=== PATIENT | female | born 1960 | race Caucasian/White ===

== ENCOUNTER → 2016-07-28 | Outpatient (CLI) | payer MEDICAID | LOC: RAD 15:01 | PROVIDERS: ATTEND Family Medicine | DX: R91.1 Solitary pulmonary nodule (principal) | CPT/HCPCS: 71250 ==

== ENCOUNTER → 2016-08-13 | Day surgery (SDC) | payer MEDICAID ==
[2016-08-13 10:23] VITALS: BP 172/84
[2016-08-13 10:31] LABS: PROTHROMBIN TIME 12.4 SEC (11.4-15.4)
[2016-08-13 10:32] LABS: PARTIAL THROMBOPLASTIN TIME 30.5 SEC (23.5-35.8)
== END ==
LOC: RAD 09:52
PROVIDERS: ATTEND Specialist
DX: G35 Multiple sclerosis (principal); Z53.9 Procedure and treatment not carried out, unspecified reason
CPT/HCPCS: 36415; 82962; 85610; 85730

== ENCOUNTER 2016-08-18 08:20 | Day surgery (SDC) | payer MEDICAID ==
[2016-08-18 09:15] LABS: PROTHROMBIN TIME 12.9 SEC (11.4-15.4)
[2016-08-18 09:16] LABS: PARTIAL THROMBOPLASTIN TIME 31.7 SEC (23.5-35.8)
[2016-08-18 12:01] LABS: APPEARANCE ALL TUBES CLEAR
[2016-08-18 12:02] LABS: RBC DILUENT USED NONE USED; RBC SIDE 1 212; RBC SIDE 2 194
[2016-08-18 12:04] LABS: RBC DILUTION FACTOR 1
[2016-08-18 12:05] LABS: TOTAL RBC SQUARES COUNTED 225
[2016-08-18 12:25] LABS: GLUCOSE,CSF 79 mg/dL (40-70)
[2016-08-18 12:27] LABS: WHITE BLOOD CELL,CSF 4 /uL (0-5)
[2016-08-18 13:29] VITALS: BP 152/69
[2016-08-19 13:38] LABS: ALBUMIN CSF 30 mg/dL (11-48); ALBUMIN SERUM 3.9 g/dL (3.5-5.5); CSF IGG INDEX 0.6 (0.0-0.7); IGG SYNTHESIS RATE CSF 1.7 mg/day (-9.9 TO +3.3); IGG/ALBUMIN RATIO CSF 0.15 (0.00-0.25); IMMUNOGLOBULIN G CSF 4.5 mg/dL (0.0-8.6); IMMUNOGLOBULIN G SERUM 1004 mg/dL (700-1600)
[2016-08-19 13:48] LABS: CSF/SERUM ALBUMIN INDEX 8 (0-8)
== END 2016-08-18 13:00 | disposition home or self-care (01) ==
LOC: RAD 08:20
PROVIDERS: ATTEND Specialist
PROC: 009U3ZX Drainage of Spinal Canal, Percutaneous Approach, Diagnostic (ICD-10-PCS; principal; 2016-08-18)
DX: G35 Multiple sclerosis (principal)
CPT/HCPCS: 36415; 62270; 77003; 82784; 82945; 82962; 83916; 84157; 85610; 85730; 87070; 87205; 89050

== ENCOUNTER → 2016-09-04 | Outpatient (CLI) | payer MEDICAID | LOC: RAD 11:01 | PROVIDERS: ATTEND Internal Medicine Nephrology | DX: R09.89 Other specified symptoms and signs involving the circulatory and respiratory systems (principal); I12.9 Hypertensive chronic kidney disease with stage 1 through stage 4 chronic kidney disease, or unspecified chronic kidney disease; N18.3 Chronic kidney disease, stage 3 (moderate); E11.9 Type 2 diabetes mellitus without complications | CPT/HCPCS: 76770; 93880 ==

== ENCOUNTER → 2016-09-11 | Outpatient (CLI) | payer MEDICAID ==
[2016-09-11 11:49] LABS: HEMATOCRIT 35.3 % (36.0-47.0); HEMOGLOBIN 11.4 g/dL (12.0-15.5); HGB HCT DIFFERENCE -1.1; MEAN CORPUSCULAR HEMOGLOBIN 28.7 pg (27.0-33.4); MEAN CORPUSCULAR HGB CONC 32.4 g/dL (32.0-36.0); MEAN CORPUSCULAR VOLUME 89 fl (80-97); RED BLOOD COUNT 3.99 10^6/uL (3.72-5.28); RED CELL DISTRIBUTION WIDTH 15.2 % (11.5-14.0); WHITE BLOOD COUNT 10.8 10^3/uL (4.0-10.5)
[2016-09-11 11:50] LABS: APPEARANCE,URINE SLIGHTLY-CLOUDY; BILIRUBIN,URINE NEGATIVE (NEGATIVE); GLUCOSE, URINE 50 mg/dL (NEGATIVE); KETONES,URINE NEGATIVE (NEGATIVE); LEUKOCYTE ESTERASE,URINE NEGATIVE (NEGATIVE); NITRITE,URINE NEGATIVE (NEGATIVE); PROTEIN,URINE 30 mg/dL (NEGATIVE); URINE SPECIFIC GRAVITY 1.016; UROBILINOGEN,URINE NEGATIVE mg/dL (<2.0)
[2016-09-11 12:15] LABS: ANION GAP 13 (5-19); BLOOD UREA NITROGEN 27 mg/dL (7-20); CALCIUM 9.6 mg/dL (8.4-10.2); CARBON DIOXIDE 26 mmol/L (22-30); CHLORIDE 105 mmol/L (98-107); CREATININE RESULT 1.39 mg/dL (0.52-1.25); GLUCOSE 186 mg/dL (75-110); POTASSIUM 4.9 mmol/L (3.6-5.0); SODIUM 143.5 mmol/L (137-145)
== END ==
LOC: OD 11:06
PROVIDERS: ATTEND Internal Medicine Nephrology
DX: I12.9 Hypertensive chronic kidney disease with stage 1 through stage 4 chronic kidney disease, or unspecified chronic kidney disease (principal); N18.3 Chronic kidney disease, stage 3 (moderate); E11.9 Type 2 diabetes mellitus without complications; E87.5 Hyperkalemia
CPT/HCPCS: 36415; 80048; 81001; 85027

== ENCOUNTER → 2016-09-18 | Outpatient (CLI) | payer MEDICAID ==
--- NOTE | 2016-09-21 14:57 | XCELERA REPORT ---
[address] [address] Lower Extremity Venous Evaluation Name: FLETCHER LONG Age: 56 yrs Gender: Female : 1960 Patient Status: Outpatient Patient Location: Study Date: 09/18/2016 03:49 PM Procedure: Color flow and duplex imaging of the veins of the left lower extremity as well as the right Common Femoral vein. Reason For Study: LLE SWELLING M79.89 Ordering Physician: ZAHIRA MCCLAIN Performed By: Henrietta Franklin Right Sided Venous Evaluation The right common femoral vein is fully compressible. Spontaneous and phasic flow is present in the right common femoral vein. Left Sided Venous Evaluation Normal vessel filling wall to wall, compression and augmentation as well as Colour flow down to the infrageniculate veins. Interpretation Summary No duplex evidence of DVT or obstruction in the left lower extremity nor in the right Common Femoral vein. : ZAHIRA MCCLAIN > Antonio Estevez
== END ==
LOC: SP 15:35
PROVIDERS: ATTEND Family Medicine
DX: M79.89 Other specified soft tissue disorders (principal)
CPT/HCPCS: 93971

== ENCOUNTER → 2016-11-30 | Outpatient (CLI) | payer MEDICAID ==
[2016-11-30 10:35] LABS: HEMATOCRIT 35.8 % (36.0-47.0); HEMOGLOBIN 11.6 g/dL (12.0-15.5); MEAN CORPUSCULAR HGB CONC 32.4 g/dL (32.0-36.0); MEAN CORPUSCULAR VOLUME 87 fl (80-97); RED BLOOD COUNT 4.14 10^6/uL (3.72-5.28); RED CELL DISTRIBUTION WIDTH 15.1 % (11.5-14.0); WHITE BLOOD COUNT 9.6 10^3/uL (4.0-10.5)
[2016-11-30 10:49] LABS: APPEARANCE,URINE SLIGHTLY-CLOUDY; BILIRUBIN,URINE NEGATIVE (NEGATIVE); GLUCOSE, URINE NEGATIVE (NEGATIVE); KETONES,URINE NEGATIVE (NEGATIVE); LEUKOCYTE ESTERASE,URINE NEGATIVE (NEGATIVE); NITRITE,URINE NEGATIVE (NEGATIVE); PROTEIN,URINE 30 mg/dL (NEGATIVE); URINE SPECIFIC GRAVITY 1.013; UROBILINOGEN,URINE NEGATIVE mg/dL (<2.0)
[2016-11-30 11:03] LABS: ANION GAP 16 (5-19); BLOOD UREA NITROGEN 22 mg/dL (7-20); CALCIUM 9.4 mg/dL (8.4-10.2); CARBON DIOXIDE 25 mmol/L (22-30); CHLORIDE 107 mmol/L (98-107); GLUCOSE 122 mg/dL (75-110); POTASSIUM 4.9 mmol/L (3.6-5.0); SODIUM 147.5 mmol/L (137-145)
[2016-11-30 11:12] LABS: URINE CREATININE 124.3 mg/dL (15-278); URINE PROTEIN 30.8 mg/dL (<12)
== END ==
LOC: OD 09:37
PROVIDERS: ATTEND Internal Medicine Nephrology
DX: N18.3 Chronic kidney disease, stage 3 (moderate) (principal); E87.5 Hyperkalemia; E11.9 Type 2 diabetes mellitus without complications; R80.9 Proteinuria, unspecified
CPT/HCPCS: 36415; 80048; 81001; 82570; 84156; 85027

== ENCOUNTER → 2016-12-03 | Outpatient (CLI) | payer MEDICAID ==
[2016-12-03 11:24] LABS: ANION GAP 16 (5-19); BLOOD UREA NITROGEN 19 mg/dL (7-20); CALCIUM 9.3 mg/dL (8.4-10.2); CARBON DIOXIDE 23 mmol/L (22-30); CHLORIDE 103 mmol/L (98-107); CREATININE RESULT 1.19 mg/dL (0.52-1.25); GLUCOSE 171 mg/dL (75-110); POTASSIUM 4.7 mmol/L (3.6-5.0); SODIUM 141.8 mmol/L (137-145)
== END ==
LOC: OD 09:54
PROVIDERS: ATTEND Internal Medicine Nephrology
DX: E87.0 Hyperosmolality and hypernatremia (principal)
CPT/HCPCS: 36415; 80048

== ENCOUNTER 2017-02-08 16:42 | Inpatient (IN) | payer MEDICAID ==
--- NOTE | 2017-02-08 17:25 | ER Document Report ---
ED Medical Screen (RME) - General Chief Complaint: S/S of Possible Stroke Stated Complaint: CHEST PAIN Time Seen by Provider: 02/08/17 17:06 Information source: Patient Notes: Patient is a 57 year old female who presents to the ED with complaints of right facial weakness, drooling and weakness in the right leg x3 days that has remained constant. Patient denies chest pain, headache or swallowing difficulty. Patient reports some dizziness. Patient stopped taking her aspirin today and stopped Plavix at the beginning of the month for an upcoming eye surgery. TRAVEL OUTSIDE OF THE [place] IN LAST 30 DAYS: No - HPI Associated Symptoms: Other - see above - Related Data Allergies/Adverse Reactions: niacin [Niacin] Allergy (Verified 02/08/17 16:45) simvastatin [Simvastatin] Allergy (Verified 02/08/17 16:45) benedryl Adverse Reaction (Uncoded 02/08/17 16:45) Past Medical History - General Information source: Patient - Social History Chew tobacco use (# tins/day): No Frequency of alcohol use: None Drug Abuse: None - Past Medical History Cardiac Medical History: Reports: Hx Hypercholesterolemia, Hx Hypertension Denies: Hx Coronary Artery Disease, Hx Heart Attack Pulmonary Medical History: Reports: Hx Bronchitis Denies: Hx Asthma, Hx COPD, Hx Pneumonia Neurological Medical History: Reports: Hx Seizures - 3 YEARS AGO AFTER BENADRYL USE. Denies: Hx Cerebrovascular Accident Endocrine Medical History: Reports: Hx Diabetes Mellitus Type 2 - no medications Renal/ Medical History: Denies: Hx Peritoneal Dialysis Musculoskeltal Medical History: Reports Hx Arthritis Past Surgical History: Reports: Hx Tubal Ligation - Immunizations Hx Diphtheria, Pertussis, Tetanus Vaccination: No - UNSURE Review of Systems - Review of Systems Constitutional: See HPI, Weakness - RLE EENT: No symptoms reported Cardiovascular: No symptoms reported Respiratory: No symptoms reported Gastrointestinal: No symptoms reported Genitourinary: No symptoms reported Female Genitourinary: No symptoms reported Musculoskeletal: No symptoms reported Skin: No symptoms reported Hematologic/Lymphatic: No symptoms reported Neurological/Psychological: See HPI, Weakness - in right lower extremity, Other - right sided facial weakness, drooling Physical Exam - Vital signs Vitals: Temp Pulse Resp BP Pulse Ox 97.7 F 80 20 192/89 H 100 02/08/17 16:45 02/08/17 16:45 02/08/17 16:45 02/08/17 16:45 02/08/17 16:45 - General In distress: None - HEENT Head: Other - drooping of right side of face, normal forehead movement - Extremities General lower extremity: Other - mild right lower extremity weakness, no pronator drift - Neurological Motor strength normal: No: RLE - mild right lower extremity weakness, no pronator drift Course - Vital Signs Vital signs: Temp Pulse Resp BP Pulse Ox 97.7 F 80 20 192/89 H 100 02/08/17 16:45 02/08/17 16:45 02/08/17 16:45 02/08/17 16:45 02/08/17 16:45 Scribe Documentation - Scribe Written by Luis:: luis Blair, 02/08/2017, 1720 acting as scribe for :: Pankaj
--- NOTE | 2017-02-08 17:43 | RADIOLOGY REPORT (SQ) ---
EXAM DESCRIPTION: CHEST SINGLE VIEW COMPLETED DATE/TIME: 02/08/2017 5:35 pm REASON FOR STUDY: Right Facial droop and leg weakness. COMPARISON: None. EXAM PARAMETERS: NUMBER OF VIEWS: One view. TECHNIQUE: Single frontal radiographic view of the chest acquired. RADIATION DOSE: NA LIMITATIONS: None. FINDINGS: LUNGS AND PLEURA: No opacities, masses or pneumothorax. No pleural effusion. MEDIASTINUM AND HILAR STRUCTURES: No masses. Contour normal. HEART AND VASCULAR STRUCTURES: Heart normal in size. Normal vasculature. BONES: No acute findings. HARDWARE: None in the chest. OTHER: No other significant finding. IMPRESSION: NO ACUTE RADIOGRAPHIC FINDING IN THE CHEST. TECHNICAL DOCUMENTATION: JOB ID: [id number]
--- NOTE | 2017-02-08 17:43 | RADIOLOGY REPORT (SQ) ---
EXAM DESCRIPTION: CT HEAD WITHOUT COMPLETED DATE/TIME: 02/08/2017 5:31 pm REASON FOR STUDY: Right Facial droop and leg weakness. COMPARISON: 10/07/2014 TECHNIQUE: Axial images acquired through the brain without intravenous contrast. Images reviewed wi th bone, brain and subdural windows. Images stored on PACS. All CT scanners at this facility use dose modulation, iterative reconstruction, and/or weight based d osing when appropriate to reduce radiation dose to as low as reasonably achievable (ALARA). [facility]: Dose Right [facility]: CareDose [facility]: Dose Right [facility]: Teradose 4D [facility]: CreditEase RADIATION DOSE: mGy. LIMITATIONS: None. FINDINGS: VENTRICLES: Normal size and contour. CEREBRUM: Area of encephalomalacia within the right frontal lobe not present on prior study compatibl e with chronic GIANFRANCO territory infarction. Subtle area of low attenuation involving the left frontal l obe seen on series 2, images 17-20 knee concerning for acute/ subacute MCA territory infarction. No hemorrhage or mass lesion identified. CEREBELLUM: No masses. No hemorrhage. No alteration of density. No evidence for acute infarction. EXTRAAXIAL SPACES: No fluid collections. No masses. ORBITS AND GLOBE: No intra- or extraconal masses. Normal contour of globe without masses. CALVARIUM: No fracture. PARANASAL SINUSES: No fluid or mucosal thickening. SOFT TISSUES: No mass or hematoma. OTHER: No other significant finding. IMPRESSION: CT FINDINGS CONCERNING FOR ACUTE/ SUBACUTE LEFT MCA TERRITORY INFARCTION DESCRIBED AB OVE. MRI IS AVAILABLE FOR FURTHER EVALUATION CLINICALLY INDICATED. CHRONIC RIGHT GIANFRANCO TERRITORY INFARCTION. Pertinent findings on the imaging study reported as a CRITICAL RESULT to CHACORTA TORRES at17:35 on 02/08. Category of Critical Result: ACUTE STROKE. TECHNICAL DOCUMENTATION: JOB ID: [id number] Quality ID # [id number]: Final reports with documentation of one or more dose reduction techniques (e.g., Au tomated exposure control, adjustment of the mA and/or kV according to patient size, use of iterative reconstruction technique) 2010 [employer]- All Rights Reserved
--- NOTE | 2017-02-08 17:50 | ER Document Report ---
ED Neuro Symptoms/Deficit - General Information source: Patient Notes: Patient is a 57-year-old female who presents to the emergency department today with complaints of right-sided facial weakness. Patient states she has had this weakness for 4 days now. Patient states she has no right-sided arm or leg weakness. Patient states that she has been off of her blood thinning medication secondary to a scheduled eye surgery on 02/08/2017. Patient states she has been told by neurology that she has had TIAs in the past. 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 TRAVEL OUTSIDE OF THE [place] IN LAST 30 DAYS: No - HPI Patient complains to provider of: Other - see narrative Onset: Other - see above Duration: More than 3 hrs Baseline Cognitive: Alert, oriented X 3 Baseline Gait: Walks w/o assistance New weakness: R facial <SAMIA KRISHNAMURTHY - Last Filed: 02/08/17 23:45> <FLETCHER WHATLEY - Last Filed: 02/09/17 01:15> - General Chief Complaint: S/S of Possible Stroke Stated Complaint: CHEST PAIN Time Seen by Provider: 02/08/17 17:06 - Related Data Allergies/Adverse Reactions: niacin [Niacin] Allergy (Verified 02/08/17 16:45) simvastatin [Simvastatin] Allergy (Verified 02/08/17 16:45) benedryl Adverse Reaction (Uncoded 02/08/17 16:45) Home Medications: Current Home Medications Amlodipine Besylate [Norvasc 5 mg Tablet] 5 mg PO QAM 02/08/17 [History] Aspirin [Adult Low Dose Aspirin EC] 81 mg PO QAM 02/08/17 [History] Atorvastatin Calcium [Lipitor 80 mg Tablet] 80 mg PO QAM 02/08/17 [History] Bupropion HCl [Wellbutrin Xl 300mg 24hr Tablet] 300 mg PO QAM 02/08/17 [History] Carvedilol [Coreg 12.5 mg Tablet] 12.5 mg PO Q12 02/08/17 [History] Clopidogrel Bisulfate [Plavix 75 mg Tablet] 75 mg PO QAM 02/08/17 [History] Gabapentin [Neurontin 300 mg Capsule] 600 mg PO Q12 02/08/17 [History] Glimepiride [Amaryl 4 mg Tablet] 4 mg PO Q12 02/08/17 [History] Levothyroxine Sodium [Synthroid] 25 mcg PO QAM 02/08/17 [History] Metformin HCl [Glucophage XR 500 mg Tablet] 1,000 mg PO BID 02/08/17 [History] Mirtazapine [Remeron 15 mg Tablet] 15 mg PO QPM 02/08/17 [History] Vitamin B Complex 1 cap PO QPM 02/08/17 [History] Vitamin E 1,000 unit PO QPM 02/08/17 [History] Past Medical History - General Information source: Patient - Social History Smoking Status: Former Smoker Cigarette use (# per day): No Chew tobacco use (# tins/day): No Frequency of alcohol use: None Drug Abuse: None Lives with: Family Family History: Reviewed & Not Pertinent, Other Patient has suicidal ideation: No Patient has homicidal ideation: No - Past Medical History Cardiac Medical History: Reports: Hx Hypercholesterolemia, Hx Hypertension Pulmonary Medical History: Reports: Hx Bronchitis Neurological Medical History: Reports: Hx Cerebrovascular Accident - Hx of TIAs , Hx Seizures - 3 YEARS AGO AFTER BENADRYL USE Endocrine Medical History: Reports: Hx Diabetes Mellitus Type 2 - no medications Musculoskeltal Medical History: Reports Hx Arthritis Past Surgical History: Reports: Hx Tubal Ligation - Immunizations Hx Diphtheria, Pertussis, Tetanus Vaccination: No - UNSURE Hx Pneumococcal Vaccination: 12/10/12 <SAMIA KRISHNAMURTHY - Last Filed: 02/08/17 23:45> Review of Systems - Review of Systems Constitutional: No symptoms reported EENT: No symptoms reported Cardiovascular: No symptoms reported Respiratory: No symptoms reported Gastrointestinal: No symptoms reported Genitourinary: No symptoms reported Female Genitourinary: No symptoms reported Musculoskeletal: No symptoms reported Skin: No symptoms reported Hematologic/Lymphatic: No symptoms reported Neurological/Psychological: See HPI, Other - right sided facial weakness. denies: Headaches -: Yes All other systems reviewed and negative <SAMIA KRISHNAMURTHY - Last Filed: 02/08/17 23:45> Physical Exam - Vital signs Vitals: Temp Pulse Resp BP Pulse Ox 97.7 F 80 20 192/89 H 100 02/08/17 16:45 02/08/17 16:45 02/08/17 16:45 02/08/17 16:45 02/08/17 16:45 <SAMIA KRISHNAMURTHY - Last Filed: 02/08/17 23:45> - Vital signs Vitals: Temp Pulse Resp BP Pulse Ox 97.7 F 80 20 192/89 H 100 02/08/17 16:45 02/08/17 16:45 02/08/17 16:45 02/08/17 16:45 02/08/17 16:45 Interpretation: Normal - General General appearance: Appears well, Alert - HEENT Head: Normocephalic, Atraumatic Eyes: Normal Pupils: PERRL - Respiratory Respiratory status: No respiratory distress Chest status: Nontender Breath sounds: Normal Chest palpation: Normal - Cardiovascular Rhythm: Regular Heart sounds: Normal auscultation Murmur: No - Abdominal Inspection: Normal Distension: No distension Bowel sounds: Normal Tenderness: Nontender Organomegaly: No organomegaly - Back Back: Normal, Nontender - Extremities General upper extremity: Normal inspection, Nontender, Normal color, Normal ROM , Normal temperature General lower extremity: Normal inspection, Nontender, Normal color, Normal ROM , Normal temperature, Normal weight bearing. No: Krissy's sign - Neurological Neuro grossly intact: Yes Cognition: Normal Orientation: AAOx4 [place] Coma Scale Eye Opening: Spontaneous Ayanna Coma Scale Verbal: Oriented Ayanna Coma Scale Motor: Obeys Commands Ayanna Coma Scale Total: 15 Speech: Normal Cranial nerves: Other - Decreased smile on right Motor strength normal: LUE, LLE. No: RUE - 4 out of 5 strength, weakness, no drift, RLE - 4 out of 5 strength, weakness, no drift Sensory: Normal - Psychological Associated symptoms: Normal affect, Normal mood - Skin Skin Temperature: Warm Skin Moisture: Dry Skin Color: Normal <FLETCHER WHATLEY - Last Filed: 02/09/17 01:15> Course - Vital Signs Vital signs: Temp Pulse Resp BP Pulse Ox 97.7 F 80 20 192/89 H 100 02/08/17 16:45 02/08/17 16:45 02/08/17 16:45 02/08/17 16:45 02/08/17 16:45 - Laboratory Result Diagrams: 02/08/17 18:00 02/08/17 18:00 - Consults Dr. Branham Time consulted: 17:45 Consulted provider: will see as inpatient <SAMIA KRISHNAMURTHY - Last Filed: 02/08/17 23:45> - Re-evaluation Re-evalutation: Patient is a 57-year-old female who comes in complaining of right-sided weakness. Patient has acute CVA on CT. Patient discussed with the hospitalist service. Patient will be referred for admission. Otherwise stable. Patient agrees with this plan. - Vital Signs Vital signs: Temp Pulse Resp BP Pulse Ox 97.7 F 80 20 192/89 H 100 02/08/17 16:45 02/08/17 16:45 02/08/17 16:45 02/08/17 16:45 02/08/17 16:45 - Laboratory Result Diagrams: 02/08/17 18:00 02/08/17 18:00 <FLETCHER WHATLEY - Last Filed: 02/09/17 01:15> ED [employer]/Exc Criteria - The patient is: -: Included and is eligible to receive Alteplase. *Initiate bed placement at higher level of care* Reviewd risks & benefits of thrombolytic therapy: I have reviewed the risks and benefits of thrombolytic therapy with the patient and/or his/her family. -: Excluded and not eligible to receive Alteplase for the above exclusions. -: Excluded and not eligible to receive Alteplase for other reasons (specify in comments): --: Yes - 3-day-old symptoms <FLETCHER WHATLEY - Last Filed: 02/09/17 01:15> ED NIH Stroke Scale Discharge <SAMIA KRISHNAMURTHY - Last Filed: 02/08/17 23:45> - Discharge Admitting Provider: Hospitalist [facility] Admitted: Telemetry Scribe Attestation: 02/09/17 01:15 I personally performed the services described in the documentation, reviewed and edited the documentation which was dictated to the scribe in my presence, and it accurately records my words and actions. <FLETCHER WHATLEY - Last Filed: 02/09/17 01:15> - Discharge Clinical Impression: CVA (cerebral vascular accident) Qualifiers: CVA mechanism: unspecified Qualified Code(s): I63.9 - Cerebral infarction, unspecified Condition: Stable Disposition: ADMITTED INPATIENT Scribe Documentation - Scribe Written by Bryanibe:: Racheal Jimenez, 02/09/2017, 0000 acting as scribe for :: Tera <SAMIA KRISHNAMURTHY - Last Filed: 02/08/17 23:45>
[2017-02-08] MEDS ORDERED: INSULIN LISPRO 100 UNIT/ML 3 ML VIAL SUBCUT PRN (18:05)
[2017-02-08] MEDS ORDERED: LABETALOL HCL INJ 20 MG/4 ML DISP.SYRIN IV PRN (18:05)
[2017-02-08] MEDS ORDERED: DEXTROSE 50%-WATER 25 GM/50 ML DISP.SYRIN IV PRN ×2 (18:05)
[2017-02-08] MEDS ORDERED: ACETAMINOPHEN 325 MG TABLET PO PRN (18:05)
[2017-02-08] MEDS ORDERED: GLUCAGON,HUMAN RECOMB 1 MG INJ IM PRN (18:05)
[2017-02-08] MEDS ORDERED: ONDANSETRON HCL INJ/PF 4 MG/2 ML SDV IV PRN (18:05)
[2017-02-08] MEDS ORDERED: DEXTROSE 40% GEL 15 GM TUBE PO PRN ×2 (18:05)
[2017-02-08] MEDS ORDERED: CLOPIDOGREL BISULFATE 75 MG TABLET PO SCH (18:15)
[2017-02-08] MEDS ORDERED: AMLODIPINE BESYLATE 5 MG TABLET PO SCH (18:15)
[2017-02-08 18:23] LABS: ABSOLUTE BASOPHILS # (AUTO) 0.2 10^3/uL (0.0-0.2); ABSOLUTE EOSINOPHILS # (AUTO) 0.7 10^3/uL (0.0-0.6); ABSOLUTE LYMPHOCYTES (AUTO) 2.7 10^3/uL (0.5-4.7); ABSOLUTE MONOCYTES (AUTO) 0.9 10^3/uL (0.1-1.4); ABSOLUTE NEUT (AUTO) 6.7 10^3/uL (1.7-8.2); BASOPHILS % (AUTO) 1.9 % (0-2); EOSINOPHILS % (AUTO) 6.1 % (0-6); HEMATOCRIT 36.2 % (36.0-47.0); HEMOGLOBIN 11.7 g/dL (12.0-15.5); HGB HCT DIFFERENCE -1.1; LYMPHOCYTES % (AUTO) 24.3 % (13-45); MEAN CORPUSCULAR HEMOGLOBIN 27.6 pg (27.0-33.4); MEAN CORPUSCULAR HGB CONC 32.3 g/dL (32.0-36.0); MEAN CORPUSCULAR VOLUME 85 fl (80-97); MONOCYTES % (AUTO) 7.6 % (3-13); PROTHROMBIN TIME 13.1 SEC (11.4-15.4); RED BLOOD COUNT 4.24 10^6/uL (3.72-5.28); RED CELL DISTRIBUTION WIDTH 15.6 % (11.5-14.0); SEGMENTED NEUTROPHILS % (AUTO) 60.1 % (42-78); WHITE BLOOD COUNT 11.2 10^3/uL (4.0-10.5)
[2017-02-08 18:24] LABS: PARTIAL THROMBOPLASTIN TIME 35.4 SEC (23.5-35.8)
[2017-02-08] MEDS ORDERED: LORAZEPAM INJ 2 MG/1 ML VIAL IV ONE (18:30)
[2017-02-08 18:32] LABS: ALANINE AMINOTRANSFERASE 34 U/L (9-52); ALBUMIN 4.5 g/dL (3.5-5.0); ALKALINE PHOSPHATASE 111 U/L (38-126); ANION GAP 13 (5-19); ASPARTATE AMINO TRANSFERASE 20 U/L (14-36); BILIRUBIN,DIRECT 0.3 mg/dL (0.0-0.4); BILIRUBIN,TOTAL 0.5 mg/dL (0.2-1.3); BLOOD UREA NITROGEN 27 mg/dL (7-20); CARBON DIOXIDE 24 mmol/L (22-30); CHLORIDE 105 mmol/L (98-107); CREATINE KINASE 62 U/L (30-135); CREATININE RESULT 1.58 mg/dL (0.52-1.25); GLUCOSE 104 mg/dL (75-110); POTASSIUM 4.6 mmol/L (3.6-5.0); SODIUM 142.3 mmol/L (137-145); TOTAL PROTEIN 7.8 g/dL (6.3-8.2)
--- NOTE | 2017-02-08 18:42 | PDOC H&P ---
History of Present Illness [facility] complains of: Right-sided weakness History of Present Illness: FLETCHER LONG is a 57 year old female with past medical history of hypertension, hyperlipidemia, diabetes, peripheral vascular disease, prior stroke presents with 4 day history of right-sided weakness and right facial weakness. Patient was seen by her primary care provider today and advised to go to the emergency department. She states that she was supposed to have an eye surgery tomorrow and was told to stop her Plavix in the beginning of this month and she stopped her aspirin today. 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 Jarred Dempsey in [facility] Her neurologist is Dr. Bailey Medications have not been verified but according to patient's list she takes Norvasc 10 mg daily, Lipitor 80 mg daily, glimepiride 4 mg twice daily, Wellbutrin XL 300 mg daily, Synthroid 25 mcg daily, metformin 500 mg 4 times a day, Plavix 75 mg daily, aspirin 81 mg daily, Neurontin 600 mg twice daily, Coreg 12.5 mg twice daily. Past Medical History Cardiac Medical History: Reports: Hyperlipidema, Hypertension Denies: Coronary Artery Disease, Myocardial Infarction Pulmonary Medical History: Reports: Bronchitis Denies: Asthma, Chronic Obstructive Pulmonary Disease (COPD), Pneumonia Neurological Medical History: Reports: Seizures - 3 YEARS AGO AFTER BENADRYL USE Endocrine Medical History: Reports: Diabetes Mellitus Type 2 - no medications, Hypothyroidism Musculoskeltal Medical History: Reports: Arthritis Hematology: Denies: Anemia Past Surgical History Past Surgical History: Reports: Tubal Ligation, Vascular Surgery - Lower extremity stent placement 3 Social History Information Source: Patient Lives with: Spouse/Significant other Smoking Status: Former Smoker Frequency of Alcohol Use: None Hx Recreational Drug Use: No Hx Prescription Drug Abuse: No - Advance Directive Resuscitation Status: Full Code Family History Family History: DM, Hyperlipidemia, Hypertension Parental Family History Reviewed: Yes Children Family History Reviewed: Yes Sibling(s) Family History Reviewed.: Yes Medication/Allergy Allergies/Adverse Reactions: niacin [Niacin] Allergy (Verified 02/08/17 16:45) simvastatin [Simvastatin] Allergy (Verified 02/08/17 16:45) benedryl Adverse Reaction (Uncoded 02/08/17 16:45) Review of Systems Constitutional: ABSENT: chills, fever(s), headache(s), weight gain, weight loss Eyes: ABSENT: visual disturbances Ears: ABSENT: hearing changes Cardiovascular: ABSENT: chest pain, dyspnea on exertion, edema, orthropnea, palpitations Respiratory: ABSENT: cough, hemoptysis Gastrointestinal: ABSENT: abdominal pain, constipation, diarrhea, hematemesis, hematochezia, nausea, vomiting Genitourinary: ABSENT: dysuria, hematuria Musculoskeletal: ABSENT: joint swelling Integumentary: ABSENT: rash, wounds Neurological: PRESENT: abnormal gait, focal weakness. ABSENT: abnormal speech, confusion, dizziness, syncope Psychiatric: ABSENT: anxiety, depression, homidical ideation, suicidal ideation Endocrine: ABSENT: cold intolerance, heat intolerance, polydipsia, polyuria Hematologic/Lymphatic: ABSENT: easy bleeding, easy bruising Physical Exam Vital Signs: Temp Pulse Resp BP Pulse Ox 97.7 F 80 20 192/89 H 100 02/08/17 16:45 02/08/17 16:45 02/08/17 16:45 02/08/17 16:45 02/08/17 16:45 Intake & Output 02/07/17 02/08/17 02/09/17 06:59 06:59 06:59 Weight 83.9 kg PHYSICAL EXAM: GENERAL: Appears well, no acute distress HEENT: Normocephalic, no scleral icterus, conjunctiva clear, EOEM intact, PERRLA , moist mucous membranes NECK: trachea midline, no thyromegally RESPIRATORY: Clear to auscultation, no wheezes/rhonchi CARDIAC: Regular rate and rhythm, no murmur/julian/rub ABDOMEN: Soft, no distension, no tenderness, no guarding, normal bowel sounds, negative Warren sign RECTAL: deferred : deferred EXTREMITIES: No edema, cyanosis, clubbing MUSCULOSKELETAL: No joint swelling or deformity VASCULAR: normal peripheral pulses NEUROLOGIC: Alert, oriented to person/place/time, normal speech, mild right facial droop, 4/5 strength in right upper extremity and right lower extremity, 5 /5 strength in left upper extremity and left lower extremity, tactile sensation intact in all extremities SKIN: No rash, no wounds, no worrisome skin lesions PSYCHIATRIC: Normal mood, normal affect Results Laboratory Results: 02/08/17 18:00 02/08/17 18:00 WBC 11.2 H RBC 4.24 Hgb 11.7 L Hct 36.2 MCV 85 MCH 27.6 MCHC 32.3 RDW 15.6 H Plt Count 292 Seg Neutrophils % 60.1 Lymphocytes % 24.3 Monocytes % 7.6 Eosinophils % 6.1 H Basophils % 1.9 Absolute Neutrophils 6.7 Absolute Lymphocytes 2.7 Absolute Monocytes 0.9 Absolute Eosinophils 0.7 H Absolute Basophils 0.2 EKG Comments: Sinus rhythm, first-degree AV block Impressions: Chest X-Ray 02/08/17 17:23 IMPRESSION: NO ACUTE RADIOGRAPHIC FINDING IN THE CHEST. Head CT 02/08/17 17:23 IMPRESSION: CT FINDINGS CONCERNING FOR ACUTE/ SUBACUTE LEFT MCA TERRITORY INFARCTION DESCRIBED ABOVE. MRI IS AVAILABLE FOR FURTHER EVALUATION CLINICALLY INDICATED. CHRONIC RIGHT GIANFRANCO TERRITORY INFARCTION. Pertinent findings on the imaging study reported as a CRITICAL RESULT to CHACORTA TORRES at17:35 on 02/08/2017. Category of Critical Result: ACUTE STROKE. Assessment & Plan - Diagnosis (1) CVA (cerebral vascular accident) Is this a current diagnosis for this admission?: YesPlan: Patient will be admitted to telemetry bed. I will attempt an MRI of the brain although patient states she probably will not tolerated she is claustrophobic. She had carotid Doppler on 09/04/2016 that was negative for hemodynamically significant stenosis. Resume her aspirin, Plavix, Lipitor. PT/OT/ST eval. DVT prophylaxis. (2) Diabetes Qualifiers: Diabetes mellitus type: type 2 Is this a current diagnosis for this admission?: YesPlan: Resume home dose of Glimepiride. Discontinue metformin secondary to renal impairment. Sliding scale insulin. (3) Hypertension Is this a current diagnosis for this admission?: YesPlan: Resume home dose of Norvasc 10 mg daily. Hold Coreg for now secondary to first- degree AV block. As needed IV hydralazine. (4) Hypothyroid Is this a current diagnosis for this admission?: YesPlan: Resume Synthroid. (5) Hypercholesterolemia Is this a current diagnosis for this admission?: YesPlan: Resume Lipitor. (6) Peripheral vascular disease Is this a current diagnosis for this admission?: YesPlan: Status post lower extremity stenting 3. Restart aspirin, Plavix, Lipitor. - Time Time Spent: Greater than 70 Minutes Anticipated discharge: Home
[2017-02-08 18:44] LABS: CREATINE KINASE MB 0.51 ng/mL (<4.55); TROPONIN I 0.015 ng/mL
[2017-02-08] MEDS ORDERED: ASPIRIN 81 MG TABLET, ENT COATED PO SCH (19:00)
[2017-02-08] MEDS ORDERED: AMLODIPINE BESYLATE 10 MG TABLET PO ONE ×2 (19:00→23:30)
[2017-02-08] MEDS ORDERED: METFORMIN HCL 500 MG TABLET PO SCH (22:00)
[2017-02-08] MEDS ORDERED: ATORVASTATIN CALCIUM 80 MG TABLET PO SCH (22:00)
[2017-02-08] MEDS: GABAPENTIN 300 MG CAPSULE PO SCH (22:14)
[2017-02-08] MEDS: BUPROPION HCL 100 MG TABLET PO SCH (22:15)
[2017-02-08] MEDS ORDERED: LORAZEPAM INJ 2 MG/1 ML VIAL ONE (22:16)
[2017-02-08] MEDS: HEPARIN SOD (PORCINE) 5,000 UNIT/ML 1 ML SYRINGE SUBCUT SCH (22:17)
--- NOTE | 2017-02-08 22:44 | EKG REPORT ---
SEVERITY:- ABNORMAL ECG - SINUS RHYTHM FIRST DEGREE AV BLOCK : Confirmed by: Maxx Hernández 08-Feb-2017 22:43:32
--- NOTE | 2017-02-08 23:13 | RADIOLOGY REPORT (SQ) ---
EXAM DESCRIPTION: MRI HEAD WITHOUT COMPLETED DATE/TIME: 02/08/2017 10:59 pm REASON FOR STUDY: acute CVA COMPARISON: None. TECHNIQUE: Multiplanar imaging includes non-contrasted T1, T2, FLAIR, and diffusion with ADC map seq uences. Images stored on PACS. LIMITATIONS: None. FINDINGS: ANATOMY: No anomalies. Normal vascular flow voids. Pituitary fossa normal. CSF SPACES: Normal in size and contour. No hemorrhage. CEREBRUM: Sulci and gyri normal in size and contour. Normal white matter signal on FLAIR imaging. No evidence of hemorrhage, mass, or extraaxial fluid collection. Chronic right frontal infarct. POSTERIOR FOSSA: No signal alteration. No hemorrhage. No edema, masses or mass effect. Internal milton tory canals, cerebello-pontine angles, mastoids normal. DIFFUSION IMAGING: Negative for acute or sub-acute infarction. ORBITS: No masses. Globes normal. PARANASAL SINUSES: No fluid levels. Mucosa normal. OTHER: No other significant finding. IMPRESSION: Chronic right frontal infarct. No acute intracranial abnormality. EVIDENCE OF ACUTE STROKE: NO. TECHNICAL DOCUMENTATION: JOB ID: [id number] [employer]- All Rights Reserved
[2017-02-09 04:49] LABS: ABSOLUTE BASOPHILS # (AUTO) 0.1 10^3/uL (0.0-0.2); ABSOLUTE EOSINOPHILS # (AUTO) 0.6 10^3/uL (0.0-0.6); ABSOLUTE LYMPHOCYTES (AUTO) 2.4 10^3/uL (0.5-4.7); ABSOLUTE MONOCYTES (AUTO) 0.7 10^3/uL (0.1-1.4); BASOPHILS % (AUTO) 1.4 % (0-2); EOSINOPHILS % (AUTO) 5.9 % (0-6); HEMATOCRIT 35.5 % (36.0-47.0); HEMOGLOBIN 11.4 g/dL (12.0-15.5); HGB HCT DIFFERENCE -1.3; LYMPHOCYTES % (AUTO) 24.2 % (13-45); MEAN CORPUSCULAR HEMOGLOBIN 27.8 pg (27.0-33.4); MEAN CORPUSCULAR HGB CONC 32.1 g/dL (32.0-36.0); MEAN CORPUSCULAR VOLUME 87 fl (80-97); MONOCYTES % (AUTO) 7.1 % (3-13); RED CELL DISTRIBUTION WIDTH 15.7 % (11.5-14.0); SEGMENTED NEUTROPHILS % (AUTO) 61.4 % (42-78); WHITE BLOOD COUNT 9.8 10^3/uL (4.0-10.5)
[2017-02-09 05:10] LABS: ANION GAP 13 (5-19); BLOOD UREA NITROGEN 30 mg/dL (7-20); CALCIUM 9.5 mg/dL (8.4-10.2); CARBON DIOXIDE 22 mmol/L (22-30); CHLORIDE 108 mmol/L (98-107); CHOLESTEROL 119.57 mg/dL (0-200); CREATININE RESULT 1.47 mg/dL (0.52-1.25); Direct HDL 29 mg/dL (>40); GLUCOSE 102 mg/dL (75-110); POTASSIUM 4.4 mmol/L (3.6-5.0); SODIUM 143.4 mmol/L (137-145); TRIGLYCERIDES 205 mg/dL (<150)
[2017-02-09] MEDS: BUPROPION HCL 100 MG TABLET PO SCH (05:16)
[2017-02-09] MEDS: HEPARIN SOD (PORCINE) 5,000 UNIT/ML 1 ML SYRINGE SUBCUT SCH (05:16)
[2017-02-09 05:20] LABS: DIRECT LDL 56 mg/dL (<100)
[2017-02-09 07:56] VITALS: BP 134/63
[2017-02-09] MEDS: GABAPENTIN 300 MG CAPSULE PO SCH (09:46)
[2017-02-09] MEDS ORDERED: AMLODIPINE BESYLATE 10 MG TABLET PO SCH (10:00)
[2017-02-09] MEDS ORDERED: LEVOTHYROXINE SODIUM 0.025 MG TABLET PO SCH ×2 (10:00)
[2017-02-09] MEDS ORDERED: (PENDING PHARMACY ID) (Bupropion Hcl [Bupropion Xl] 300 MG) PO SCH (10:00)
[2017-02-09] MEDS ORDERED: CARVEDILOL 12.5 MG TABLET PO SCH (10:00)
[2017-02-09] MEDS ORDERED: ATORVASTATIN CALCIUM 80 MG TABLET PO SCH (10:00)
[2017-02-09] MEDS ORDERED: GLIMEPIRIDE 4 MG TABLET PO SCH (10:00)
[2017-02-09] MEDS ORDERED: CLOPIDOGREL BISULFATE 75 MG TABLET PO SCH (10:00)
[2017-02-09] MEDS ORDERED: ASPIRIN 81 MG TABLET, ENT COATED PO SCH (10:00)
[2017-02-09] MEDS ORDERED: (PENDING PHARMACY ID) (Vitamin B Complex [Vitamin B Complex] 1 CAP) PO SCH (18:00)
[2017-02-09] MEDS ORDERED: VITAMIN E (DL, ACETATE) 400 UNIT CAPSULE PO SCH (18:00)
[2017-02-09] MEDS ORDERED: MIRTAZAPINE 15 MG TABLET PO SCH (18:00)
[2017-02-09] MEDS ORDERED: (PENDING PHARMACY ID) (Vitamin E [Vitamin E] 1,000 UNIT) PO SCH (18:00)
[2017-02-09] MEDS ORDERED: CYANOCOBALAMIN/FA/PYRIDOXINE TABLET PO SCH (18:00)
--- NOTE | 2017-02-10 16:36 | PDOC DISCHARGE SUMMARY ---
General - Admit/Disc Date/PCP Admission Date/Primary Care Provider: 02/08/17 18:05 ZAHIRA MCCLAIN, Discharge Date: 02/09/17 - Discharge Diagnosis (1) CVA (cerebral vascular accident) Is this a current diagnosis for this admission?: Yes (2) Diabetes Is this a current diagnosis for this admission?: Yes (3) Hypercholesterolemia Is this a current diagnosis for this admission?: Yes (4) Hypertension Is this a current diagnosis for this admission?: Yes (5) Hypothyroid Is this a current diagnosis for this admission?: Yes (6) Peripheral vascular disease Is this a current diagnosis for this admission?: Yes (7) Severe obesity (BMI 35.0-35.9 with comorbidity) Is this a current diagnosis for this admission?: Yes - Additional Information Resuscitation Status: Full Code Discharge Diet: Cardiac, Diabetic Discharge Activity: Activity As Tolerated, Slowly Increase Activity, Supervised Activity Home Medications: Aspirin [Adult Low Dose Aspirin EC] 81 mg PO QAM 02/08/17 Atorvastatin Calcium [Lipitor 80 mg Tablet] 80 mg PO QA 02/08/17 Bupropion HCl [Wellbutrin Xl 300mg 24hr Tablet] 300 mg PO QAM 02/08/17 Carvedilol [Coreg 12.5 mg Tablet] 12.5 mg PO Q12 02/08/17 Clopidogrel Bisulfate [Plavix 75 mg Tablet] 75 mg PO QAM 02/08/17 Gabapentin [Neurontin 300 mg Capsule] 600 mg PO Q12 02/08/17 Glimepiride [Amaryl 4 mg Tablet] 4 mg PO Q12 02/08/17 Levothyroxine Sodium [Synthroid] 25 mcg PO QAM 02/08/17 Metformin HCl [Glucophage XR 500 mg Tablet] 1,000 mg PO BID 02/08/17 Mirtazapine [Remeron 15 mg Tablet] 15 mg PO QPM 02/08/17 Vitamin B Complex 1 cap PO QPM 02/08/17 Vitamin E 1,000 unit PO QPM 02/08/17 Amlodipine Besylate [Norvasc 10 mg Tablet] 10 mg PO DAILY #30 tablet 02/09/17 History of Present Illness History of Present Illness: FLETCHER LONG is a 57 year old female with past medical history of hypertension, hyperlipidemia, diabetes, peripheral vascular disease, prior stroke presents with 4 day history of right-sided weakness and right facial weakness. Patient was seen by her primary care provider today and advised to go to the emergency department. She states that she was supposed to have an eye surgery tomorrow and was told to stop her Plavix in the beginning of this month and she stopped her aspirin today. Her manpower development specialist is Dr. Jarred Dempsey in [facility] Her neurologist is Dr. Bailey Medications have not been verified but according to patient's list she takes Norvasc 10 mg daily, Lipitor 80 mg daily, glimepiride 4 mg twice daily, Wellbutrin XL 300 mg daily, Synthroid 25 mcg daily, metformin 500 mg 4 times a day, Plavix 75 mg daily, aspirin 81 mg daily, Neurontin 600 mg twice daily, Coreg 12.5 mg twice daily. Hospital Course Hospital Course: Patient underwent CT of the head on 02/08/2017 spelled concern for an acute/ subacute left MCA territory infarct with the chronic GIANFRANCO territory. MRI was performed on 02/08/2017 confirmed a chronic right frontal infarct. Patient had previously been off of her aspirin and Plavix for anticipated eye surgery on . Patient was advised to resume this and to see her primary care physician for clearance prior to having eye surgery. Did not undergo carotid Doppler this admission as patient had one 5 months ago on 09/04/2016 which revealed no hemodynamically significant lesions. Fasting lipid panel revealed an LDL of 56. And HDL of 29. Patient's hemoglobin A1c was 8. Patient reports she is following with Dr. Rowan in [facility]. She is advised to continue to follow with her. Patient had minor residual right-sided weakness and did not require any therapy. Patient was discharged home in stable condition and advised not to drive. Physical Exam Vital Signs: Temp Pulse Resp BP Pulse Ox 97.6 F 66 16 134/63 H 99 02/09/17 10:21 02/09/17 10:21 02/09/17 10:21 02/09/17 10:21 02/09/17 10:21 Intake & Output 02/09/17 02/10/17 02/11/17 06:59 06:59 06:59 Intake Total 105 Output Total 1 Balance 104 Weight 83.5 kg Exam: GENERAL: Appears well, no acute distress HEENT: Normocephalic, no scleral icterus, conjunctiva clear, EOEM intact, PERRLA , moist mucous membranes NECK: trachea midline, no jvd RESPIRATORY: Clear to auscultation, no wheezes/rhonchi CARDIAC: Regular rate and rhythm, no murmur/julian/rub ABDOMEN: Soft, no distension, no tenderness, no guarding, normal bowel sounds, negative Warren sign EXTREMITIES: No edema, cyanosis, clubbing NEUROLOGIC: Alert, oriented to person/place/time, normal speech, minor right facial droop, 4+/5 strength in right upper extremity and right lower extremity, 5/5 strength in left upper extremity and left lower extremity, tactile sensation intact in all extremities SKIN: No rash, no wounds, no worrisome skin lesions PSYCHIATRIC: Normal mood, normal affect Results Laboratory Results: 02/09/17 04:11 02/09/17 04:11 Impressions: Head MRI 02/08/17 00:00 IMPRESSION: Chronic right frontal infarct. No acute intracranial abnormality. EVIDENCE OF ACUTE STROKE: NO. Chest X-Ray 02/08/17 17:23 IMPRESSION: NO ACUTE RADIOGRAPHIC FINDING IN THE CHEST. Head CT 02/08/17 17:23 IMPRESSION: CT FINDINGS CONCERNING FOR ACUTE/ SUBACUTE LEFT MCA TERRITORY INFARCTION DESCRIBED ABOVE. MRI IS AVAILABLE FOR FURTHER EVALUATION CLINICALLY INDICATED. CHRONIC RIGHT GIANFRANCO TERRITORY INFARCTION. Pertinent findings on the imaging study reported as a CRITICAL RESULT to CHACORTA TORRES at17:35 on 02/08/2017. Category of Critical Result: ACUTE STROKE. Qualifiers PATEINT BEING DISCHARGED WITH ANY OF THE FOLLOWING DIAGNOSIS?: No Plan Time Spent: Less than 30 Minutes
== END 2017-02-09 11:09 | disposition home or self-care (01) | DRG 66 ==
LOC: ER 16:42 → EH 18:05 → UNDOADMIN 18:34 → EH 18:34 → 3N 21:20
PROVIDERS: ADMIT Family Medicine; ATTEND Family Medicine
DX: I63.9 Cerebral infarction, unspecified (principal); E78.00 Pure hypercholesterolemia, unspecified; I10 Essential (primary) hypertension; E03.9 Hypothyroidism, unspecified; E11.51 Type 2 diabetes mellitus with diabetic peripheral angiopathy without gangrene; M19.90 Unspecified osteoarthritis, unspecified site; I44.0 Atrioventricular block, first degree; E78.5 Hyperlipidemia, unspecified; R29.810 Facial weakness; E66.01 Morbid (severe) obesity due to excess calories; Z68.33 Body mass index [BMI] 33.0-33.9, adult; Z79.899 Other long term (current) drug therapy; Z79.02 Long term (current) use of antithrombotics/antiplatelets; Z79.82 Long term (current) use of aspirin; Z87.891 Personal history of nicotine dependence; Z88.8 Allergy status to other drugs, medicaments and biological substances; Z83.3 Family history of diabetes mellitus; Z82.49 Family history of ischemic heart disease and other diseases of the circulatory system
CPT/HCPCS: 36415; 70450; 70551; 71010; 80048; 80053; 80061; 82550; 82553; 82962; 83036; 84484; 85025; 85610; 85730; 93005; 93010; 99285; J1644; J2060; J3490

== ENCOUNTER → 2017-03-30 | Outpatient (CLI) | payer MEDICAID | LOC: OD 08:38 | PROVIDERS: ATTEND Physician Assistant Medical | DX: E87.5 Hyperkalemia (principal) | CPT/HCPCS: 36415; 84132 ==

== ENCOUNTER → 2017-07-28 | Outpatient (CLI) | payer MEDICAID ==
[2017-07-28 13:09] LABS: HEMATOCRIT 33.1 % (36.0-47.0); HEMOGLOBIN 10.9 g/dL (12.0-15.5); MEAN CORPUSCULAR HEMOGLOBIN 28.6 pg (27.0-33.4); MEAN CORPUSCULAR VOLUME 87 fl (80-97); PLATELET COUNT 294 10^3/uL (150-450); RED BLOOD COUNT 3.82 10^6/uL (3.72-5.28); RED CELL DISTRIBUTION WIDTH 15.2 % (11.5-14.0); WHITE BLOOD COUNT 8.9 10^3/uL (4.0-10.5)
[2017-07-28 13:11] LABS: APPEARANCE,URINE SLIGHTLY-CLOUDY; BILIRUBIN,URINE NEGATIVE (NEGATIVE); COLOR,URINE YELLOW; GLUCOSE, URINE 150 mg/dL (NEGATIVE); KETONES,URINE NEGATIVE (NEGATIVE); LEUKOCYTE ESTERASE,URINE TRACE (NEGATIVE); NITRITE,URINE NEGATIVE (NEGATIVE); PROTEIN,URINE NEGATIVE (NEGATIVE); URINE SPECIFIC GRAVITY 1.014; UROBILINOGEN,URINE NEGATIVE mg/dL (<2.0)
[2017-07-28 13:34] LABS: ANION GAP 15 (5-19); BLOOD UREA NITROGEN 28 mg/dL (7-20); CALCIUM 9.1 mg/dL (8.4-10.2); CARBON DIOXIDE 23 mmol/L (22-30); CHLORIDE 107 mmol/L (98-107); GLUCOSE 219 mg/dL (75-110); POTASSIUM 4.6 mmol/L (3.6-5.0); SODIUM 144.8 mmol/L (137-145)
[2017-07-29 12:38] LABS: CREATININE URINE 90.6 mg/dL (Not Estab.); MICROALBUMIN URINE 59.7 ug/mL (Not Estab.)
== END ==
LOC: OD 12:14
PROVIDERS: ATTEND Internal Medicine Nephrology
DX: E11.22 Type 2 diabetes mellitus with diabetic chronic kidney disease (principal); N18.3 Chronic kidney disease, stage 3 (moderate); E87.5 Hyperkalemia; R80.9 Proteinuria, unspecified
CPT/HCPCS: 36415; 80048; 81001; 82043; 82570; 85027

== ENCOUNTER → 2017-09-09 | Outpatient (CLI) | payer MEDICAID ==
[2017-09-09 17:23] LABS: HEMATOCRIT 32.8 % (36.0-47.0); HEMOGLOBIN 10.9 g/dL (12.0-15.5); MEAN CORPUSCULAR HEMOGLOBIN 28.3 pg (27.0-33.4); MEAN CORPUSCULAR HGB CONC 33.3 g/dL (32.0-36.0); MEAN CORPUSCULAR VOLUME 85 fl (80-97); PLATELET COUNT 271 10^3/uL (150-450); RED BLOOD COUNT 3.86 10^6/uL (3.72-5.28); RED CELL DISTRIBUTION WIDTH 15.3 % (11.5-14.0); WHITE BLOOD COUNT 8.2 10^3/uL (4.0-10.5)
[2017-09-09 17:30] LABS: APPEARANCE,URINE SLIGHTLY-CLOUDY; BILIRUBIN,URINE NEGATIVE (NEGATIVE); COLOR,URINE YELLOW; GLUCOSE, URINE 50 mg/dL (NEGATIVE); KETONES,URINE NEGATIVE (NEGATIVE); LEUKOCYTE ESTERASE,URINE TRACE (NEGATIVE); NITRITE,URINE NEGATIVE (NEGATIVE); PROTEIN,URINE NEGATIVE (NEGATIVE); URINE SPECIFIC GRAVITY 1.017; UROBILINOGEN,URINE NEGATIVE mg/dL (<2.0)
[2017-09-09 17:43] LABS: ANION GAP 15 (5-19); BLOOD UREA NITROGEN 26 mg/dL (7-20); CALCIUM 9.5 mg/dL (8.4-10.2); CARBON DIOXIDE 22 mmol/L (22-30); CHLORIDE 106 mmol/L (98-107); GLUCOSE 224 mg/dL (75-110); POTASSIUM 4.9 mmol/L (3.6-5.0); SODIUM 142.9 mmol/L (137-145)
== END ==
LOC: OD 15:53
PROVIDERS: ATTEND Physician Assistant Medical
DX: N18.3 Chronic kidney disease, stage 3 (moderate) (principal); R80.9 Proteinuria, unspecified; E11.9 Type 2 diabetes mellitus without complications; E87.5 Hyperkalemia
CPT/HCPCS: 36415; 80048; 81001; 85027

== ENCOUNTER → 2017-12-10 | Outpatient (CLI) | payer MEDICAID ==
[2017-12-10 08:13] LABS: HEMATOCRIT 35.2 % (36.0-47.0); HEMOGLOBIN 11.6 g/dL (12.0-15.5); MEAN CORPUSCULAR HEMOGLOBIN 27.8 pg (27.0-33.4); MEAN CORPUSCULAR HGB CONC 32.8 g/dL (32.0-36.0); MEAN CORPUSCULAR VOLUME 85 fl (80-97); PLATELET COUNT 261 10^3/uL (150-450); RED BLOOD COUNT 4.15 10^6/uL (3.72-5.28); RED CELL DISTRIBUTION WIDTH 15.5 % (11.5-14.0); WHITE BLOOD COUNT 8.7 10^3/uL (4.0-10.5)
[2017-12-10 08:26] LABS: APPEARANCE,URINE SLIGHTLY-CLOUDY; BILIRUBIN,URINE NEGATIVE (NEGATIVE); COLOR,URINE YELLOW; GLUCOSE, URINE 50 mg/dL (NEGATIVE); KETONES,URINE NEGATIVE (NEGATIVE); LEUKOCYTE ESTERASE,URINE NEGATIVE (NEGATIVE); NITRITE,URINE NEGATIVE (NEGATIVE); PROTEIN,URINE NEGATIVE (NEGATIVE); URINE SPECIFIC GRAVITY 1.008; UROBILINOGEN,URINE NEGATIVE mg/dL (<2.0)
[2017-12-10 08:41] LABS: ALANINE AMINOTRANSFERASE 34 U/L (9-52); ALBUMIN 4.1 g/dL (3.5-5.0); ALKALINE PHOSPHATASE 97 U/L (38-126); ANION GAP 14 (5-19); ASPARTATE AMINO TRANSFERASE 21 U/L (14-36); BILIRUBIN,DIRECT 0.2 mg/dL (0.0-0.4); BILIRUBIN,TOTAL 0.2 mg/dL (0.2-1.3); BLOOD UREA NITROGEN 23 mg/dL (7-20); CALCIUM 9.7 mg/dL (8.4-10.2); CARBON DIOXIDE 29 mmol/L (22-30); CHLORIDE 104 mmol/L (98-107); GLUCOSE 152 mg/dL (75-110); SODIUM 146.7 mmol/L (137-145); TOTAL PROTEIN 6.8 g/dL (6.3-8.2)
[2017-12-10 08:52] LABS: ANION GAP 14 (5-19); BLOOD UREA NITROGEN 23 mg/dL (7-20); CALCIUM 9.7 mg/dL (8.4-10.2); CARBON DIOXIDE 29 mmol/L (22-30); CHLORIDE 104 mmol/L (98-107); GLUCOSE 152 mg/dL (75-110); SODIUM 146.7 mmol/L (137-145)
[2017-12-10 08:54] LABS: FREE T4 (FREE THYROXINE) 1.16 ng/dL (0.78-2.19)
[2017-12-10 09:08] LABS: THYROID STIMULATING HORMONE 10.3 uIU/mL (0.47-4.68)
== END ==
LOC: OD 07:36
PROVIDERS: ATTEND Internal Medicine Endocrinology, Diabetes & Metabolism
DX: N18.3 Chronic kidney disease, stage 3 (moderate) (principal); E11.49 Type 2 diabetes mellitus with other diabetic neurological complication; R80.9 Proteinuria, unspecified; E03.9 Hypothyroidism, unspecified
CPT/HCPCS: 36415; 80048; 80053; 81001; 83970; 84100; 84439; 84443; 85027

== ENCOUNTER 2018-01-01 11:50 | Emergency (ER) | payer MEDICAID ==
[2018-01-01] MEDS ORDERED: ASPIRIN 81 MG TABLET, CHEWABLE PO ONE (12:08)
--- NOTE | 2018-01-01 12:10 | ER Document Report ---
ED Medical Screen (RME) - General Chief Complaint: Chest Pain Stated Complaint: CHEST DISCOMFORT Time Seen by Provider: 01/01/18 12:08 Mode of Arrival: Ambulatory Information source: Patient Notes: 57-year-old female with a history of hypertension and TIA presents to the emergency room with a pulling sensation across the chest. Patient has no known cardiac history. She states that it started at 8 PM but had resolved by the time she went to bed. She states she did not feel it when she was sleeping but after waking this morning, the pain came back. She denies that it is worse with exertion. She does state it is worse with positioning. Her blood pressure is 179/80 with a pulse of 79 and O2 sat of 96% in triage. The blood pressures are similar bilaterally. EKG is normal sinus rhythm with no acute change. I have greeted and performed a rapid initial assessment of this patient. A comprehensive ED assessment and evaluation of the patient, analysis of test results and completion of medical decision making process we will be contacted by additional ED providers. TRAVEL OUTSIDE OF THE [place] IN LAST 30 DAYS: No - Related Data Allergies/Adverse Reactions: niacin [Niacin] Allergy (Verified 01/01/18 11:51) simvastatin [Simvastatin] Allergy (Verified 01/01/18 11:51) benedryl Adverse Reaction (Uncoded 01/01/18 11:51) Past Medical History - Past Medical History Cardiac Medical History: Reports: Hx Hypercholesterolemia, Hx Hypertension Denies: Hx Coronary Artery Disease, Hx Heart Attack Pulmonary Medical History: Reports: Hx Bronchitis Denies: Hx Asthma, Hx COPD, Hx Pneumonia Neurological Medical History: Reports: Hx Cerebrovascular Accident - Hx of TIAs , Hx Seizures - 3 YEARS AGO AFTER BENADRYL USE Endocrine Medical History: Reports: Hx Diabetes Mellitus Type 2 - no medications , Hx Hypothyroidism Renal/ Medical History: Denies: Hx Peritoneal Dialysis Musculoskeltal Medical History: Reports Hx Arthritis Psychiatric Medical History: Reports: Hx Depression Past Surgical History: Reports: Hx Tubal Ligation, Hx Vascular Surgery - Lower extremity stent placement 3 - Immunizations Hx Diphtheria, Pertussis, Tetanus Vaccination: No - UNSURE Physical Exam - Vital signs Vitals: Temp Pulse Resp BP Pulse Ox 97.7 F 78 18 179/80 H 97 01/01/18 12:03 01/01/18 12:03 01/01/18 12:03 01/01/18 12:03 01/01/18 12:03 Course - Vital Signs Vital signs: Temp Pulse Resp BP Pulse Ox 97.7 F 78 18 171/88 H 97 01/01/18 12:03 01/01/18 12:03 01/01/18 12:03 01/01/18 12:05 01/01/18 12:03 Doctor's Discharge - Discharge Referrals: RACHAEL CHATTERJEE PA-C [Primary Care Provider] - Follow up as needed
[2018-01-01] MEDS ORDERED: NITROGLYCERIN 2% OINTMENT 1 GM PACKET TP ONE (12:45)
--- NOTE | 2018-01-01 12:48 | ER Document Report ---
ED Cardiac - General Chief Complaint: Chest Pain Stated Complaint: CHEST DISCOMFORT Time Seen by Provider: 01/01/18 12:08 Mode of Arrival: Ambulatory Notes: 57-year-old female patient to the emergency department by POV for evaluation of chest pain. States the chest pain started last night at approximately 8 PM. Had a lot of associated burping. Followed by title checker for heart murmur. Has peripheral vascular disease with stents in her legs. 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 Taken a baby aspirin this morning when the chest pain was still there in the center of her chest. Denies any recent activities which have exacerbated any type of musculoskeletal pain. No better or worse with deep breathing. No rash. No fever. No cough. Patient does have a history of hypertension . TRAVEL OUTSIDE OF THE [place] IN LAST 30 DAYS: No - HPI Patient complains to provider of: Chest pain, Chest tightness - Related Data Allergies/Adverse Reactions: niacin [Niacin] Allergy (Verified 01/01/18 11:51) simvastatin [Simvastatin] Allergy (Verified 01/01/18 11:51) benedryl Adverse Reaction (Uncoded 01/01/18 11:51) Past Medical History - General Information source: Patient - Social History Smoking Status: Former Smoker Chew tobacco use (# tins/day): No Frequency of alcohol use: None Drug Abuse: None Lives with: Family Family History: Reviewed & Not Pertinent, Other Patient has suicidal ideation: No Patient has homicidal ideation: No - Past Medical History Cardiac Medical History: Reports: Hx Hypercholesterolemia, Hx Hypertension Denies: Hx Coronary Artery Disease, Hx Heart Attack Pulmonary Medical History: Reports: Hx Bronchitis Denies: Hx Asthma, Hx COPD, Hx Pneumonia Neurological Medical History: Reports: Hx Cerebrovascular Accident - Hx of TIAs , Hx Seizures - 3 YEARS AGO AFTER BENADRYL USE Endocrine Medical History: Reports: Hx Diabetes Mellitus Type 2 - no medications , Hx Hypothyroidism Renal/ Medical History: Denies: Hx Peritoneal Dialysis Musculoskeltal Medical History: Reports Hx Arthritis Psychiatric Medical History: Reports: Hx Depression Past Surgical History: Reports: Hx Tubal Ligation, Hx Vascular Surgery - Lower extremity stent placement 3 - Immunizations Hx Diphtheria, Pertussis, Tetanus Vaccination: No - UNSURE Hx Pneumococcal Vaccination: 12/10/12 Review of Systems - Review of Systems Constitutional: No symptoms reported EENT: No symptoms reported Cardiovascular: No symptoms reported, Chest pain. denies: Palpitations, Heart racing, Orthopnea Respiratory: denies: Cough, Short of breath, Wheezing Gastrointestinal: See HPI, Nausea, Other - Lots of burping. denies: Vomiting Genitourinary: No symptoms reported Female Genitourinary: No symptoms reported Musculoskeletal: No symptoms reported Skin: No symptoms reported Hematologic/Lymphatic: No symptoms reported Neurological/Psychological: No symptoms reported Physical Exam - Vital signs Vitals: Temp Pulse Resp BP Pulse Ox 97.7 F 78 18 179/80 H 97 01/01/18 12:03 01/01/18 12:03 01/01/18 12:03 01/01/18 12:03 01/01/18 12:03 Interpretation: Normal - General General appearance: Appears well, Alert - HEENT Head: Normocephalic, Atraumatic Eyes: Normal Pupils: PERRL - Respiratory Respiratory status: No respiratory distress Chest status: Nontender Breath sounds: Normal Chest palpation: Normal - Cardiovascular Rhythm: Regular Heart sounds: Normal auscultation Murmur: Yes - Abdominal Inspection: Normal Distension: No distension Bowel sounds: Normal Tenderness: Nontender Organomegaly: No organomegaly - Back Back: Normal, Nontender - Extremities General upper extremity: Normal inspection, Nontender, Normal color, Normal ROM , Normal temperature General lower extremity: Normal inspection, Nontender, Normal color, Normal ROM , Normal temperature, Normal weight bearing. No: Krissy's sign - Neurological Neuro grossly intact: Yes Cognition: Normal Orientation: AAOx4 Hundred Coma Scale Eye Opening: Spontaneous Hundred Coma Scale Verbal: Oriented Hundred Coma Scale Motor: Obeys Commands Hundred Coma Scale Total: 15 Speech: Normal Motor strength normal: LUE, RUE, LLE, RLE Sensory: Normal - Psychological Associated symptoms: Normal affect, Normal mood - Skin Skin Temperature: Warm Skin Moisture: Dry Skin Color: Normal Course - Re-evaluation Re-evalutation: 01/01/18 14:20 Patient was slightly elevated cardiac troponin. With her history of vascular disease and reported history of recently failing a stress test I think that she would benefit from going to the facility that can do a cardiac catheterization. Her presentation today is very concerning for non-ST elevation TN as well as unstable angina with hypertensive emergency. Blood pressure is coming down nicely on Nitropaste. Heart rate is 70 so have not given beta-maria g. Did give Tylenol for the headache. Likely due to the nitrates. Repeat cardiac troponin has been performed which has not gone up and has gone down slightly. Patient is chest pain-free at this time. Patient has been accepted as a transfer to [facility], Dr. Loomis has accepted. We are awaiting transport at this time. Patient has been reevaluated at 1900 hrs. Patient remained stable for transport. - Vital Signs Vital signs: Temp Pulse Resp BP Pulse Ox 97.7 F 78 18 111/56 L 100 01/01/18 12:03 01/01/18 12:03 01/01/18 18:40 01/01/18 18:40 01/01/18 18:40 - Laboratory Result Diagrams: 01/01/18 12:15 01/01/18 12:15 Laboratory results interpreted by me: 01/01/18 01/01/18 12:15 12:15 Hgb 11.1 L Hct 33.1 L RDW 15.8 H Eosinophils % 6.6 H BUN 31 H Creatinine 1.53 H Est GFR ( Amer) 43 L Est GFR (Non-Af Amer) 35 L Glucose 181 H - EKG Interpretation by Me EKG shows normal: Sinus rhythm, [place], Intervals, QRS Complexes, ST-T Waves Critical Care Note - Critical Care Note Total time excluding time spent on procedures (mins): 45 Comments: Hypertensive emergency, non-ST segment elevation TN., Consultation with specialists, coordination of transfer of care. Discharge - Discharge Clinical Impression: Hypertensive emergency, Acute non-ST segment elevation myocardial infarction, Unstable angina Condition: Good Disposition: [facility] Referrals: RACHAEL CHATTERJEE PA-C [ALLIED HEALTH PROFESSIONAL] - Follow up as needed
[2018-01-01 12:57] LABS: ABSOLUTE BASOPHILS # (AUTO) 0.1 10^3/uL (0.0-0.2); ABSOLUTE EOSINOPHILS # (AUTO) 0.4 10^3/uL (0.0-0.6); ABSOLUTE LYMPHOCYTES (AUTO) 1.5 10^3/uL (0.5-4.7); ABSOLUTE MONOCYTES (AUTO) 0.7 10^3/uL (0.1-1.4); BASOPHILS % (AUTO) 1.7 % (0-2); EOSINOPHILS % (AUTO) 6.6 % (0-6); HEMATOCRIT 33.1 % (36.0-47.0); HEMOGLOBIN 11.1 g/dL (12.0-15.5); LYMPHOCYTES % (AUTO) 22.1 % (13-45); MEAN CORPUSCULAR HEMOGLOBIN 28.4 pg (27.0-33.4); MEAN CORPUSCULAR HGB CONC 33.7 g/dL (32.0-36.0); MEAN CORPUSCULAR VOLUME 84 fl (80-97); MONOCYTES % (AUTO) 10.7 % (3-13); PLATELET COUNT 254 10^3/uL (150-450); RED BLOOD COUNT 3.92 10^6/uL (3.72-5.28); RED CELL DISTRIBUTION WIDTH 15.8 % (11.5-14.0); SEGMENTED NEUTROPHILS % (AUTO) 58.9 % (42-78); TOTAL CELLS COUNTED % (AUTO) 100 %; WHITE BLOOD COUNT 6.8 10^3/uL (4.0-10.5)
[2018-01-01 13:19] LABS: ALANINE AMINOTRANSFERASE 29 U/L (9-52); ALBUMIN 3.9 g/dL (3.5-5.0); ALKALINE PHOSPHATASE 102 U/L (38-126); ANION GAP 16 (5-19); ASPARTATE AMINO TRANSFERASE 21 U/L (14-36); BILIRUBIN,DIRECT 0.3 mg/dL (0.0-0.4); BILIRUBIN,TOTAL 0.3 mg/dL (0.2-1.3); BLOOD UREA NITROGEN 31 mg/dL (7-20); CALCIUM 9.4 mg/dL (8.4-10.2); CARBON DIOXIDE 23 mmol/L (22-30); CHLORIDE 104 mmol/L (98-107); CREATINE KINASE 66 U/L (30-135); GLUCOSE 181 mg/dL (75-110); POTASSIUM 4.6 mmol/L (3.6-5.0); SODIUM 143.4 mmol/L (137-145); TOTAL PROTEIN 6.3 g/dL (6.3-8.2)
[2018-01-01 13:29] LABS: CREATINE KINASE MB 0.61 ng/mL (<4.55)
[2018-01-01 13:31] LABS: TROPONIN I 0.035 ng/mL
--- NOTE | 2018-01-01 13:43 | RADIOLOGY REPORT (SQ) ---
EXAM DESCRIPTION: CHEST SINGLE VIEW COMPLETED DATE/TIME: 01/01/2018 12:33 pm REASON FOR STUDY: chest pain COMPARISON: None. EXAM PARAMETERS: NUMBER OF VIEWS: One view. TECHNIQUE: Single frontal radiographic view of the chest acquired. RADIATION DOSE: NA LIMITATIONS: None. FINDINGS: LUNGS AND PLEURA: No acute infiltrates or effusions. MEDIASTINUM AND HILAR STRUCTURES: No masses. Contour normal. HEART AND VASCULAR STRUCTURES: The heart is normal. The pulmonary vasculature is normal. BONES: Degenerative changes AC joints. HARDWARE: None in the chest. IMPRESSION: NO ACUTE DISEASE. TECHNICAL DOCUMENTATION: JOB ID: [id number] 2010 [employer]- All Rights Reserved Reading location - IP/workstation name: [email or web address]
--- NOTE | 2018-01-01 13:44 | RADIOLOGY REPORT (SQ) ---
EXAM DESCRIPTION: CHEST 2 VIEWS COMPLETED DATE/TIME: 01/01/2018 12:33 pm REASON FOR STUDY: chest pain COMPARISON: 02/08/2017. EXAM PARAMETERS: NUMBER OF VIEWS: two views TECHNIQUE: Digital Frontal and Lateral radiographic views of the chest acquired. RADIATION DOSE: NA LIMITATIONS: none FINDINGS: LUNGS AND PLEURA: No acute infiltrates or effusions. MEDIASTINUM AND HILAR STRUCTURES: No masses or contour abnormalities. HEART AND VASCULAR STRUCTURES: The heart is normal with normal pulmonary vasculature. BONES: Degenerative changes at the AC joints. HARDWARE: None in the chest. OTHER: No other significant finding. IMPRESSION: NO ACUTE DISEASE. TECHNICAL DOCUMENTATION: JOB ID: [id number] 2010 [employer]- All Rights Reserved Reading location - IP/workstation name: [email or web address]
[2018-01-01] MEDS ORDERED: NITROGLYCERIN/D5W 50 MG/250 ML RTUINJ IV PRN (14:18)
--- NOTE | 2018-01-01 16:23 | EKG REPORT ---
SEVERITY:- ABNORMAL ECG - SINUS RHYTHM FIRST DEGREE AV BLOCK NONSPECIFIC T ABNORMALITIES, LATERAL LEADS : Confirmed by: Darby Medina MD 01-Jan-2018 16:21:23
[2018-01-01] MEDS ORDERED: ACETAMINOPHEN 325 MG TABLET PO ONE (18:33)
[2018-01-01 20:49] VITALS: BP 114/55
--- NOTE | 2018-01-01 20:54 | ER Document Report ---
Doctor's Note Notes: 01/01/18 20:53 Patient being transferred to [facility]. EMS is here for transport. Patient re-evaluated. Her vitals signs are stable. No current complaints. Patient hemodynamically stable for transfer.
== END 2018-01-01 21:05 | disposition short-term general hospital (02) ==
LOC: ER 11:50
DX: I16.1 Hypertensive emergency (principal); I10 Essential (primary) hypertension; I20.0 Unstable angina; I21.4 Non-ST elevation (NSTEMI) myocardial infarction; R14.2 Eructation; R51 Headache; R11.0 Nausea; E11.51 Type 2 diabetes mellitus with diabetic peripheral angiopathy without gangrene; Z95.820 Peripheral vascular angioplasty status with implants and grafts; Z88.8 Allergy status to other drugs, medicaments and biological substances; Z87.891 Personal history of nicotine dependence
CPT/HCPCS: 93005; 99291; 36415; 82553; 82550; 85025; 80053; 84484; 71046; 71045; 93010; J3490 ×2

== ENCOUNTER 2018-01-26 10:57 | Emergency (ER) | payer MEDICAID ==
--- NOTE | 2018-01-26 11:38 | ER Document Report ---
ED General - General Chief Complaint: High Blood Sugar Stated Complaint: BLOOD SUGAR CONCERN Time Seen by Provider: 01/26/18 11:28 Mode of Arrival: Ambulatory Information source: Patient Notes: 57-year-old female with type 1 diabetes, coronary artery disease, hypertension, hyperlipidemia, hypothyroidism with recent bypass surgery presents from home after her home health nurse had an Accu-Chek reading of 560. Patient was informed to come to immediately to the hospital. She has not taken her Lantus or glyburide yet today. She denies any associated symptoms including fever, chills, nausea, vomiting, chest pain, shortness of breath, abdominal pain, dysuria, hematuria, vaginal discharge. She states she has been doing otherwise well since released from [facility]. She does state that she had her Metformin discontinued after that hospitalization which was 2 weeks ago. TRAVEL OUTSIDE OF THE [place] IN LAST 30 DAYS: No - HPI Onset: Just prior to arrival Quality of pain: No pain Associated symptoms: None Exacerbated by: Denies Relieved by: Denies Similar symptoms previously: No Recently seen / treated by doctor: No - Related Data Allergies/Adverse Reactions: niacin [Niacin] Allergy (Verified 01/01/18 11:51) simvastatin [Simvastatin] Allergy (Verified 01/01/18 11:51) benedryl Adverse Reaction (Uncoded 01/01/18 11:51) Past Medical History - General Information source: Patient, [facility] Records - Social History Smoking Status: Former Smoker Frequency of alcohol use: None Drug Abuse: None Lives with: Family Family History: Reviewed & Not Pertinent, Other - Past Medical History Cardiac Medical History: Reports: Hx Hypercholesterolemia, Hx Hypertension Denies: Hx Coronary Artery Disease, Hx Heart Attack Pulmonary Medical History: Reports: Hx Bronchitis Denies: Hx Asthma, Hx COPD, Hx Pneumonia Neurological Medical History: Reports: Hx Cerebrovascular Accident - Hx of TIAs , Hx Seizures - 3 YEARS AGO AFTER BENADRYL USE Endocrine Medical History: Reports: Hx Diabetes Mellitus Type 2 - no medications , Hx Hypothyroidism Renal/ Medical History: Denies: Hx Peritoneal Dialysis Musculoskeltal Medical History: Reports Hx Arthritis Psychiatric Medical History: Reports: Hx Depression Past Surgical History: Reports: Hx Tubal Ligation, Hx Vascular Surgery - Lower extremity stent placement 3 - Immunizations Hx Diphtheria, Pertussis, Tetanus Vaccination: No - UNSURE Hx Pneumococcal Vaccination: 12/10/12 Review of Systems - Review of Systems Notes: REVIEW OF SYSTEMS: CONSTITUTIONAL : Denies fever, chills, or sweats. Denies recent illness. Denies weight loss, recent hospitalizations. EENT: Denies visual changes, eye pain. Denies nasal or sinus congestion or discharge. Denies sore throat, oral lesions, difficulty swallowing. CARDIOVASCULAR: Denies chest pain. Denies palpitations. Denies lower extremity edema. RESPIRATORY: Denies cough, cold, or chest congestion. Denies shortness of breath, wheezing. GASTROINTESTINAL: Denies abdominal pain or distention. Denies nausea, vomiting , or diarrhea. Denies blood in vomitus, stools, or per rectum. Denies black, tarry stools. Denies constipation. GENITOURINARY: Denies difficulty urinating, painful urination, frequency, blood in urine, or vaginal discharge. MUSCULOSKELETAL: Denies back or neck pain or stiffness. Denies joint pain or swelling. SKIN: Denies rash, lesions or sores. HEMATOLOGIC : Denies easy bruising or bleeding. LYMPHATIC: Denies swollen glands. NEUROLOGICAL: Denies confusion or altered mental status. Denies passing out or loss of consciousness. Denies dizziness or lightheadedness. Denies headache. Denies weakness or paralysis. Denies problems difficulty with ambulation, slurred speech. Denies sensory loss, numbness, or tingling. Denies seizures. PSYCHIATRIC: Denies anxiety or stress. Denies depression, suicidal ideation, or homicidal ideation. Denies visual or auditory hallucinations. Physical Exam - Vital signs Vitals: Temp Pulse Resp BP Pulse Ox 98.6 F 85 14 148/69 H 95 01/26/18 11:01/26/18 11:01/26/18 11:01 01/26/18 11:01/26/18 11:01 - Notes Notes: PHYSICAL EXAMINATION: GENERAL: Well-appearing, well-nourished and in no acute distress. HEAD: Atraumatic, normocephalic. EYES: Pupils equal round and reactive to light, extraocular movements intact, conjunctiva are normal. ENT: Nares patent, oropharynx clear without exudates. Moist mucous membranes. NECK: Normal range of motion, supple without lymphadenopathy LUNGS: Breath sounds clear to auscultation bilaterally and equal. No wheezes rales or rhonchi. Chest wall scar clean dry and intact. HEART: Regular rate and rhythm without murmurs ABDOMEN: Soft, nontender, nondistended abdomen. No guarding, no rebound. No masses appreciated. Female : deferred Musculoskeletal: Normal range of motion, no pitting or edema. No cyanosis. NEUROLOGICAL: Cranial nerves grossly intact. Normal speech, normal gait. Normal sensory, motor exams PSYCH: Normal mood, normal affect. SKIN: Warm, Dry, normal turgor, no rashes or lesions noted. Course - Re-evaluation Re-evalutation: 01/26/18 13:21 Laboratory 01/26/18 01/26/18 01/26/18 11:34 11:57 12:16 Sodium 143.4 Potassium 4.7 Chloride 102 Carbon Dioxide 30 Anion Gap 11 BUN 28 H Creatinine 1.68 H Est GFR ( Amer) 38 L Est GFR (Non-Af Amer) 32 L Glucose 229 H POC Glucose 258 H Calcium 9.4 Urine Color YELLOW Urine Appearance SLIGHTLY-CLOUDY Urine pH 6.0 Ur Specific [place] 1.009 Urine Protein NEGATIVE Urine Glucose (UA) NEGATIVE Urine Ketones NEGATIVE Urine Blood NEGATIVE Urine Nitrite NEGATIVE Urine Bilirubin NEGATIVE Urine Urobilinogen NEGATIVE Ur Leukocyte Esterase SMALL H Urine WBC (Auto) 14 Urine RBC (Auto) 3 U Hyaline Cast (Auto) 4 Urine Bacteria (Auto) 3+ Squamous Epi Cells Auto 13 Urine Mucus (Auto) RARE Urine Yeast (Budding) PRESENT Urine Ascorbic Acid NEGATIVE 57-year-old female with type 1 diabetes presents from home after an Accu-Chek by her home health nurse read 560. She is a type I diabetic and is taking Lantus currently but has not taking it today. Our Accu-Chek here was 258. CMP shows a glucose of 229, patient has a normal anion gap and bicarb. No evidence of DKA. patient does have renal insufficiency which seems to be her baseline. Fluids were given for this. Urinalysis indicative of urinary tract infection. Patient received Bactrim for this. Patient provided the opportunity to ask questions, and express concerns. Discharge instructions discussed. Patient is agreeable with discharge home. Return indications explained and discussed with the patient who displays understanding. Patient encouraged to return to the emergency department immediately with any concerns. 01/26/18 17:04 - Vital Signs Vital signs: Temp Pulse Resp BP Pulse Ox 98.6 F 85 18 126/64 H 96 01/26/18 11:01 01/26/18 11:01 01/26/18 13:01 01/26/18 13:01 01/26/18 13:01 - Laboratory Result Diagrams: 01/26/18 11:57 Laboratory results interpreted by me: 01/26/18 01/26/18 01/26/18 11:34 11:57 12:16 BUN 28 H Creatinine 1.68 H Est GFR ( Amer) 38 L Est GFR (Non-Af Amer) 32 L Glucose 229 H POC Glucose 258 H Ur Leukocyte Esterase SMALL H Discharge - Discharge Clinical Impression: Hyperglycemia due to type 1 diabetes mellitus, Renal insufficiency UTI (urinary tract infection) Qualifiers: Urinary tract infection type: site unspecified Hematuria presence: without hematuria Qualified Code(s): N39.0 - Urinary tract infection, site not specified Disposition: HOME, SELF-CARE Instructions: Diabetes ([facility]), Control of Diabetes During Illness ([facility]), Urinary Tract Infection ([facility]) Prescriptions: Sulfamethoxazole/Trimethoprim [Bactrim Ds Tablet] 1 each PO BID #10 tablet Referrals: ZAHIRA MCCLAIN DO [Primary Care Provider] - Follow up in 1 week
[2018-01-26 12:34] LABS: ANION GAP 11 (5-19); BLOOD UREA NITROGEN 28 mg/dL (7-20); CALCIUM 9.4 mg/dL (8.4-10.2); CARBON DIOXIDE 30 mmol/L (22-30); CHLORIDE 102 mmol/L (98-107); GLUCOSE 229 mg/dL (75-110); POTASSIUM 4.7 mmol/L (3.6-5.0); SODIUM 143.4 mmol/L (137-145)
[2018-01-26 12:57] LABS: APPEARANCE,URINE SLIGHTLY-CLOUDY; BILIRUBIN,URINE NEGATIVE (NEGATIVE); COLOR,URINE YELLOW; GLUCOSE, URINE NEGATIVE (NEGATIVE); KETONES,URINE NEGATIVE (NEGATIVE); LEUKOCYTE ESTERASE,URINE SMALL (NEGATIVE); NITRITE,URINE NEGATIVE (NEGATIVE); PROTEIN,URINE NEGATIVE (NEGATIVE); URINE SPECIFIC GRAVITY 1.009; UROBILINOGEN,URINE NEGATIVE mg/dL (<2.0)
[2018-01-26 13:08] VITALS: BP 126/64
[2018-01-26] MEDS ORDERED: NORMAL SALINE 1000 ML 1,000 ML IV ONE (13:21)
[2018-01-26] MEDS ORDERED: SULFAMETHOXAZOLE/TRIMETHOPRIM 800-160 MG TABLET PO ONE (13:25)
== END 2018-01-26 13:50 | disposition home or self-care (01) ==
LOC: ER 10:57
DX: E10.65 Type 1 diabetes mellitus with hyperglycemia (principal); N39.0 Urinary tract infection, site not specified; N28.9 Disorder of kidney and ureter, unspecified; I25.10 Atherosclerotic heart disease of native coronary artery without angina pectoris; I10 Essential (primary) hypertension; Z88.8 Allergy status to other drugs, medicaments and biological substances; Z87.891 Personal history of nicotine dependence
CPT/HCPCS: 99283; 36415; 82962; 80048; 81001; J3490

== ENCOUNTER → 2018-01-28 | Outpatient (CLI) | payer MEDICAID ==
[2018-01-28 11:56] LABS: APPEARANCE,URINE CLOUDY; BILIRUBIN,URINE NEGATIVE (NEGATIVE); GLUCOSE, URINE NEGATIVE (NEGATIVE); KETONES,URINE NEGATIVE (NEGATIVE); LEUKOCYTE ESTERASE,URINE TRACE (NEGATIVE); NITRITE,URINE NEGATIVE (NEGATIVE); PROTEIN,URINE NEGATIVE (NEGATIVE); URINE SPECIFIC GRAVITY 1.019
[2018-01-28 11:57] LABS: COLOR,URINE YELLOW
[2018-01-28 12:28] LABS: ANION GAP 16 (5-19); BLOOD UREA NITROGEN 34 mg/dL (7-20); CALCIUM 9.2 mg/dL (8.4-10.2); CARBON DIOXIDE 26 mmol/L (22-30); CHLORIDE 103 mmol/L (98-107); POTASSIUM 5.4 mmol/L (3.6-5.0); SODIUM 144.8 mmol/L (137-145)
[2018-01-28 12:29] LABS: GLUCOSE 280 mg/dL (75-110)
[2018-01-28 12:38] LABS: HEMATOCRIT 32.4 % (36.0-47.0); HEMOGLOBIN 10.8 g/dL (12.0-15.5); MEAN CORPUSCULAR HEMOGLOBIN 29.7 pg (27.0-33.4); MEAN CORPUSCULAR HGB CONC 33.4 g/dL (32.0-36.0); PLATELET COUNT 384 10^3/uL (150-450); RED BLOOD COUNT 3.63 10^6/uL (3.72-5.28); RED CELL DISTRIBUTION WIDTH 17.8 % (11.5-14.0); WHITE BLOOD COUNT 8.1 10^3/uL (4.0-10.5)
[2018-01-28 12:44] LABS: MEAN CORPUSCULAR VOLUME 89 fl (80-97)
== END ==
LOC: OD 11:01
PROVIDERS: ATTEND Internal Medicine Nephrology
DX: I12.9 Hypertensive chronic kidney disease with stage 1 through stage 4 chronic kidney disease, or unspecified chronic kidney disease (principal); N18.3 Chronic kidney disease, stage 3 (moderate); Z98.890 Other specified postprocedural states
CPT/HCPCS: 36415; 80048; 81001; 85027

== ENCOUNTER → 2018-05-10 | Outpatient (CLI) | payer MEDICAID ==
[2018-05-10 12:08] LABS: HEMATOCRIT 32.7 % (36.0-47.0); HEMOGLOBIN 11.1 g/dL (12.0-15.5); MEAN CORPUSCULAR HEMOGLOBIN 29.3 pg (27.0-33.4); MEAN CORPUSCULAR HGB CONC 34.1 g/dL (32.0-36.0); MEAN CORPUSCULAR VOLUME 86 fl (80-97); PLATELET COUNT 263 10^3/uL (150-450); RED CELL DISTRIBUTION WIDTH 15.2 % (11.5-14.0); WHITE BLOOD COUNT 7.5 10^3/uL (4.0-10.5)
[2018-05-10 12:17] LABS: APPEARANCE,URINE CLOUDY; BILIRUBIN,URINE NEGATIVE (NEGATIVE); COLOR,URINE YELLOW; GLUCOSE, URINE 150 mg/dL (NEGATIVE); KETONES,URINE NEGATIVE (NEGATIVE); LEUKOCYTE ESTERASE,URINE MODERATE (NEGATIVE); NITRITE,URINE NEGATIVE (NEGATIVE); PROTEIN,URINE 30 mg/dL (NEGATIVE)
[2018-05-10 12:26] LABS: ANION GAP 11 (5-19); BLOOD UREA NITROGEN 20 mg/dL (7-20); CALCIUM 9.1 mg/dL (8.4-10.2); CARBON DIOXIDE 25 mmol/L (22-30); CHLORIDE 107 mmol/L (98-107); GLUCOSE 251 mg/dL (75-110); PHOSPHORUS 4.4 mg/dL (2.5-4.5); POTASSIUM 4.7 mmol/L (3.6-5.0); SODIUM 142.6 mmol/L (137-145)
== END ==
LOC: OD 10:57
PROVIDERS: ATTEND Physician Assistant Medical
DX: I12.9 Hypertensive chronic kidney disease with stage 1 through stage 4 chronic kidney disease, or unspecified chronic kidney disease (principal); E11.22 Type 2 diabetes mellitus with diabetic chronic kidney disease; N18.3 Chronic kidney disease, stage 3 (moderate); E87.5 Hyperkalemia
CPT/HCPCS: 36415; 80048; 81001; 83970; 84100; 85027

== ENCOUNTER 2018-05-17 21:27 | Inpatient (IN) | payer MEDICAID ==
[2018-05-17] MEDS ORDERED: ASPIRIN 81 MG TABLET, CHEWABLE PO ONE (21:30)
--- NOTE | 2018-05-17 22:03 | ER Document Report ---
ED General - General Chief Complaint: Chest Pain Stated Complaint: CHEST PAIN Time Seen by Provider: 05/17/18 22:01 Notes: Patient is 58-year-old female resents with complaint of feeling a sense of shortness of breath followed by heaviness in the chest. To start on a p.m. It lasted to about 10 PM. Currently she is feeling improved. She was not having exertion or do anything when this occurred. She was sent to [facility] in December. At that time heart heart cath showed multiple blockages and she underwent a quadruple bypass. After that she did have some atrial fibrillation and therefore was placed on blood thinners. She currently feels well and has no further complaints. She has had aspirin. She did not take nitro. TRAVEL OUTSIDE OF THE [place] IN LAST 30 DAYS: No - Related Data Allergies/Adverse Reactions: niacin [Niacin] Allergy (Verified 01/01/18 11:51) simvastatin [Simvastatin] Allergy (Verified 01/01/18 11:51) benedryl Adverse Reaction (Uncoded 01/01/18 11:51) Past Medical History - Social History Smoking Status: Unknown if Ever Smoked Frequency of alcohol use: None Drug Abuse: None Family History: Reviewed & Not Pertinent, Other - Past Medical History Cardiac Medical History: Reports: Hx Hypercholesterolemia, Hx Hypertension Denies: Hx Coronary Artery Disease, Hx Heart Attack Pulmonary Medical History: Reports: Hx Bronchitis Denies: Hx Asthma, Hx COPD, Hx Pneumonia Neurological Medical History: Reports: Hx Cerebrovascular Accident - Hx of TIAs , Hx Seizures - 3 YEARS AGO AFTER BENADRYL USE Endocrine Medical History: Reports: Hx Diabetes Mellitus Type 2 - no medications , Hx Hypothyroidism Renal/ Medical History: Denies: Hx Peritoneal Dialysis Musculoskeletal Medical History: Reports Hx Arthritis Psychiatric Medical History: Reports: Hx Depression Past Surgical History: Reports: Hx Tubal Ligation, Hx Vascular Surgery - Lower extremity stent placement 3 - Immunizations Hx Diphtheria, Pertussis, Tetanus Vaccination: No - UNSURE Hx Pneumococcal Vaccination: 12/10/12 Review of Systems - Review of Systems Notes: My Normal Review Basic REVIEW OF SYSTEMS: CONSTITUTIONAL : Denies fever, chills, or sweats. Denies recent illness. EENT: Denies eye, ear, throat, or mouth pain or symptoms. Denies nasal or sinus congestion. CARDIOVASCULAR: Heaviness in chest with difficulty breathing. RESPIRATORY: Apnea GASTROINTESTINAL: Denies abdominal pain. Denies nausea, vomiting, or diarrhea. MUSCULOSKELETAL: Denies neck or back pain or joint pain or swelling. SKIN: Denies rash or skin lesions. NEUROLOGICAL: Denies altered mental status or loss of consciousness. Denies headache. Denies weakness or paralysis or loss of use of either side. Denies problems with gait or speech. Denies sensory or motor loss. ALL OTHER SYSTEMS REVIEWED AND NEGATIVE. Physical Exam - Vital signs Vitals: Temp Pulse Resp BP Pulse Ox 98.3 F 79 18 188/72 H 96 05/17/18 21:29 05/17/18 21:29 05/17/18 21:29 05/17/18 21:29 05/17/18 21:29 - Notes Notes: General Appearance: Well nourished, alert, cooperative, no acute distress, no obvious discomfort. Well-appearing. Vitals: reviewed, See vital signs table. Head: no swelling or tenderness to the head Eyes: PERRL, EOMI, Conjuctiva clear Mouth: No decreasd moisture Throat: No tonsillar inflammation, No airway obstruction, No lymphadenopathy Neck: Supple, no neck tenderness, No thyromegaly Lungs: No wheezing, No rales, No rhonci, No accessory muscle use, good air exchange bilaterally. Heart: Normal rate, Regular rythm, No murmur, no rub Abdomen: Normal BS, soft, No rigidity, No abdominal tenderness, No guarding, no rebound, no abdominal masses, no organomegaly Extremities: good pulses in all extremities, no swelling or tenderness in the extremities, no edema. Skin: warm, dry, appropriate color, no rash Neuro: speech clear, oriented x 3, normal affect, responds appropriately to questions. Course - Vital Signs Vital signs: Temp Pulse Resp BP Pulse Ox 98.3 F 79 15 161/67 H 96 05/17/18 21:29 05/17/18 21:29 05/17/18 23:01 05/17/18 23:01 05/17/18 23:01 - Laboratory Result Diagrams: 05/17/18 22:16 05/17/18 22:16 Laboratory results interpreted by me: 05/17/18 05/17/18 05/17/18 22:16 22:16 22:16 Hgb 11.3 L Hct 33.6 L RDW 15.5 H PT 20.8 H APTT 48.5 H BUN 26 H Creatinine 1.47 H Est GFR ( Amer) 44 L Est GFR (Non-Af Amer) 37 L Glucose 287 H AST 56 H - EKG Interpretation by Me Additional EKG results interpreted by me: 05/17/18 22:02 EKG is reviewed and interpreted by me. EKG shows sinus rhythm with a rate of [address] segment elevation. Mild ST segment depression in multiple leads however this is unchanged comparison to her old EKG from January 01, 2018. NH interval, QRS duration, QTc intervals are within normal range. Discharge - Discharge Clinical Impression: Chest pain Qualifiers: Chest pain type: unspecified Qualified Code(s): R07.9 - Chest pain, unspecified Dyspnea Qualifiers: Dyspnea type: unspecified Qualified Code(s): R06.00 - Dyspnea, unspecified Condition: Stable Disposition: ADMITTED OBSERVATION Admitting Provider: Hospitalist Unit Admitted: Telemetry
[2018-05-17 22:25] LABS: ABSOLUTE EOSINOPHILS # (AUTO) 0.5 10^3/uL (0.0-0.6); ABSOLUTE LYMPHOCYTES (AUTO) 1.8 10^3/uL (0.5-4.7); ABSOLUTE MONOCYTES (AUTO) 0.7 10^3/uL (0.1-1.4); ABSOLUTE NEUT (AUTO) 6.4 10^3/uL (1.7-8.2); BASOPHILS % (AUTO) 0.3 % (0-2); EOSINOPHILS % (AUTO) 4.8 % (0-6); HEMATOCRIT 33.6 % (36.0-47.0); HEMOGLOBIN 11.3 g/dL (12.0-15.5); LYMPHOCYTES % (AUTO) 18.9 % (13-45); MEAN CORPUSCULAR HEMOGLOBIN 28.9 pg (27.0-33.4); MEAN CORPUSCULAR HGB CONC 33.5 g/dL (32.0-36.0); MEAN CORPUSCULAR VOLUME 86 fl (80-97); MONOCYTES % (AUTO) 7.7 % (3-13); PLATELET COUNT 256 10^3/uL (150-450); RED CELL DISTRIBUTION WIDTH 15.5 % (11.5-14.0); SEGMENTED NEUTROPHILS % (AUTO) 68.3 % (42-78); TOTAL CELLS COUNTED % (AUTO) 100 %; WHITE BLOOD COUNT 9.4 10^3/uL (4.0-10.5)
[2018-05-17 22:30] LABS: PROTHROMBIN TIME 20.8 SEC (11.4-15.4)
[2018-05-17 22:31] LABS: PARTIAL THROMBOPLASTIN TIME 48.5 SEC (23.5-35.8)
[2018-05-17 22:46] LABS: ALANINE AMINOTRANSFERASE 33 U/L (9-52); ALKALINE PHOSPHATASE 118 U/L (38-126); ANION GAP 10 (5-19); ASPARTATE AMINO TRANSFERASE 56 U/L (14-36); BILIRUBIN,DIRECT 0.3 mg/dL (0.0-0.4); BILIRUBIN,TOTAL 0.5 mg/dL (0.2-1.3); BLOOD UREA NITROGEN 26 mg/dL (7-20); CALCIUM 9.1 mg/dL (8.4-10.2); CARBON DIOXIDE 24 mmol/L (22-30); CHLORIDE 105 mmol/L (98-107); CREATINE KINASE 71 U/L (30-135); GLUCOSE 287 mg/dL (75-110); POTASSIUM 4.7 mmol/L (3.6-5.0); SODIUM 138.5 mmol/L (137-145)
[2018-05-17 22:56] LABS: CREATINE KINASE MB 0.72 ng/mL (<4.55); TROPONIN I 0.026 ng/mL
--- NOTE | 2018-05-17 23:05 | RADIOLOGY REPORT (SQ) ---
EXAM DESCRIPTION: XR CHEST 1 VIEW COMPLETED DATE/TME: 05/17/2018 21:30 CLINICAL HISTORY: 58 years, Female, cp Findings: The heart is moderately enlarged. Status post median sternotomy. No pneumothorax. Mild central pulmonary vascular congestion. No pleural effusions. IMPRESSION: Mild CHF suspected.
[2018-05-18] MEDS ORDERED: GLUCAGON,HUMAN RECOMB 1 MG INJ IM PRN (02:13)
[2018-05-18] MEDS ORDERED: INSULIN LISPRO 100 UNIT/ML 3 ML VIAL SUBCUT PRN (02:13)
[2018-05-18] MEDS ORDERED: MAG HYDROX/AL HYDROX/SIMETH SUSP 30 ML UDCUP PO PRN (02:13)
[2018-05-18] MEDS ORDERED: DEXTROSE 40% GEL 15 GM TUBE PO PRN ×2 (02:13)
[2018-05-18] MEDS ORDERED: NITROGLYCERIN 0.4 MG/TAB 25 TAB/BOTTLE SL PRN (02:13)
[2018-05-18] MEDS ORDERED: DEXTROSE 50%-WATER 25 GM/50 ML DISP.SYRIN IV PRN ×2 (02:13)
[2018-05-18 05:50] LABS: CHOLESTEROL 112.05 mg/dL (0-200); TRIGLYCERIDES 167 mg/dL (<150)
[2018-05-18 05:52] LABS: CREATINE KINASE MB 0.71 ng/mL (<4.55); TROPONIN I 0.031 ng/mL
[2018-05-18 06:01] LABS: DIRECT LDL 48 mg/dL (<100)
[2018-05-18] MEDS ORDERED: HYDRALAZINE HCL INJ/PF 20 MG/1 ML SDV IV PRN (06:01)
[2018-05-18 06:02] LABS: VLDL CHOLESTEROL 33.4 mg/dL (10-31)
[2018-05-18] MEDS: HEPARIN SOD (PORCINE) 5,000 UNIT/ML 1 ML SYRINGE SUBCUT SCH ×2 (06:38→06:43)
[2018-05-18] MEDS: BUPROPION HCL 100 MG TABLET PO SCH ×3 (06:39→22:06)
--- NOTE | 2018-05-18 06:51 | PDOC H&P ---
History of Present Illness Admission Date/PCP: 05/18/18 02:19 Patient complains of: Shortness of breath History of Present Illness: FLETCHER LONG is a 58 year old female with a complex past medical history including four-vessel bypass graft December 2017, peripheral arterial disease status post stenting, diabetes, dyslipidemia, hypertension, paroxysmal atrial fibrillation on Xarelto with sotalol and TIA. Patient presents 2 hours after the onset of shortness of breath occurring while lying flat associated with heaviness of the chest. In the emergency room she is found to have hypertensive urgency of 190/72, started on nitroglycerin and referred to the hospitalist for admission. Patient denies medication, diet or lifestyle indiscretion. She denies current pain, exertional dyspnea. She admits previous episodes occurring shortly after going to bed. She is no longer able to sleep lying flat. She admits increased leg swelling but denies productive cough, palpitations nausea or vomiting. She denies post bypass stress testing, congestive heart failure or obstructive sleep apnea. Past Medical History Cardiac Medical History: Reports: Hyperlipidema, Hypertension Denies: Coronary Artery Disease, Myocardial Infarction Pulmonary Medical History: Reports: Bronchitis Denies: Asthma, Chronic Obstructive Pulmonary Disease (COPD), Pneumonia Neurological Medical History: Reports: Seizures - 3 YEARS AGO AFTER BENADRYL USE Endocrine Medical History: Reports: Diabetes Mellitus Type 2 - no medications, Hypothyroidism Renal/ Medical History: Reports: None Malignancy Medical History: Reports: None GI Medical History: Reports: None Musculoskeltal Medical History: Reports: Arthritis Psychiatric Medical History: Reports: Depression Denies: Alcohol Dependency, Substance Abuse, Tobacco Dependency Hematology: Denies: Anemia Past Surgical History Past Surgical History: Reports: Cardiac Catheterization, Coronary Artery Bypass Graft, Tubal Ligation, Vascular Surgery - Lower extremity stent placement 3 Social History Information Source: Patient, [facility] Records Smoking Status: Former Smoker Frequency of Alcohol Use: None Hx Recreational Drug Use: No Drugs: None Hx Prescription Drug Abuse: No - Advance Directive Resuscitation Status: Full Code Family History Family History: Hypertension Parental Family History Reviewed: Yes Children Family History Reviewed: Yes Sibling(s) Family History Reviewed.: Yes Medication/Allergy Home Medications: Aspirin [Adult Low Dose Aspirin EC] 81 mg PO QAM 02/08/17 Atorvastatin Calcium [Lipitor 80 mg Tablet] 80 mg PO QAM 02/08/17 Bupropion HCl [Wellbutrin Xl 300mg 24hr Tablet] 300 mg PO QAM 02/08/17 Carvedilol [Coreg 12.5 mg Tablet] 12.5 mg PO Q12 02/08/17 Clopidogrel Bisulfate [Plavix 75 mg Tablet] 75 mg PO QAM 02/08/17 Gabapentin [Neurontin 300 mg Capsule] 600 mg PO Q12 02/08/17 Glimepiride [Amaryl 4 mg Tablet] 4 mg PO Q12 02/08/17 Levothyroxine Sodium [Synthroid] 25 mcg PO QAM 02/08/17 Metformin HCl [Glucophage XR 500 mg Tablet] 1,000 mg PO BID 02/08/17 Mirtazapine [Remeron 15 mg Tablet] 15 mg PO QPM 02/08/17 Vitamin B Complex 1 cap PO QPM 02/08/17 Vitamin E 1,000 unit PO QPM 02/08/17 Amlodipine Besylate [Norvasc 10 mg Tablet] 10 mg PO DAILY #30 tablet 02/09/17 Sulfamethoxazole/Trimethoprim [Bactrim Ds Tablet] 1 each PO BID #10 tablet 01/26 Allergies/Adverse Reactions: niacin [Niacin] Allergy (Verified 01/01/18 11:51) simvastatin [Simvastatin] Allergy (Verified 01/01/18 11:51) benedryl Adverse Reaction (Uncoded 01/01/18 11:51) Review of Systems Constitutional: PRESENT: as per HPI, fatigue, weight gain. ABSENT: fever(s), headache(s), night sweats, weakness Eyes: ABSENT: visual disturbances Ears: ABSENT: hearing changes Cardiovascular: PRESENT: as per HPI. ABSENT: dyspnea on exertion Physical Exam Vital Signs: Temp Pulse Resp BP Pulse Ox 97.8 F 69 18 159/62 H 100 05/18/18 04:00 05/18/18 04:28 05/18/18 04:00 05/18/18 04:00 05/18/18 04:00 Intake & Output 05/16/18 05/17/18 05/18/18 11:59 11:59 11:59 Weight 84.5 kg General appearance: PRESENT: no acute distress, cooperative, obese. ABSENT: disheveled Head exam: PRESENT: atraumatic, normocephalic Eye exam: PRESENT: conjunctiva pink, EOMI, PERRLA. ABSENT: scleral icterus Ear exam: PRESENT: normal external ear exam Mouth exam: PRESENT: moist, tongue midline Neck exam: ABSENT: carotid bruit, JVD, lymphadenopathy, thyromegaly Respiratory exam: PRESENT: clear to auscultation candelario. ABSENT: rales, rhonchi, wheezes Cardiovascular exam: PRESENT: RRR, +S1, +S2. ABSENT: irregular rhythm, tachycardia Pulses: PRESENT: normal dorsalis pedis pul Vascular exam: PRESENT: normal capillary refill GI/Abdominal exam: PRESENT: normal bowel sounds, soft. ABSENT: distended, guarding, mass, organolmegaly, rebound, tenderness Rectal exam: PRESENT: deferred Extremities exam: PRESENT: full ROM, pedal edema, +1 edema. ABSENT: calf tenderness, clubbing Neurological exam: PRESENT: alert, awake, oriented to person, oriented to place , oriented to time, oriented to situation, CN II-XII grossly intact. ABSENT: motor sensory deficit Psychiatric exam: PRESENT: appropriate affect, normal mood. ABSENT: homicidal ideation, suicidal ideation Skin exam: PRESENT: dry, intact, warm. ABSENT: cyanosis, rash Results Laboratory Results: 05/18/18 04:31 Triglycerides 167 H Cholesterol 112.05 LDL Cholesterol Direct 48 VLDL Cholesterol 33.4 H HDL Cholesterol 30 L 05/18/18 04:31 CK-MB (CK-2) 0.71 Troponin I 0.031 Impressions: Chest X-Ray 05/17/18 21:30 IMPRESSION: Mild CHF suspected. Assessment & Plan - Diagnosis (1) Hypertensive urgency Is this a current diagnosis for this admission?: Yes Plan: ISAIAS inhibitor, diuresis, nitroglycerin as needed (2) Chest pain Qualifiers: Chest pain type: unspecified Qualified Code(s): R07.9 - Chest pain, unspecified Is this a current diagnosis for this admission?: Yes Plan: chest pain though the patient's pain is atypical there are multiple risk factors for coronary artery disease and subsequently will observe and evaluation of acute coronary syndrome versus coronary artery disease with anginal equivalents. Cardiac monitoring blood pressure Q6 hours ,TSH, lipid profile, serial cardiac enzymes and cardiac stress test (3) Dyspnea Qualifiers: Dyspnea type: unspecified Qualified Code(s): R06.00 - Dyspnea, unspecified Is this a current diagnosis for this admission?: Yes Plan: Likely secondary to diastolic heart failure versus obstructive sleep apnea. Follow-up 2D echo, optimize blood pressure (4) Diabetes Qualifiers: Diabetes mellitus type: type 2 Is this a current diagnosis for this admission?: Yes Plan: Home regiment with Humalog sliding scale (5) Hypothyroid Is this a current diagnosis for this admission?: Yes Plan: Appears euthyroid, follow-up TSH - Time Time Spent: 50 to 70 Minutes - Inpatient Certification Medical Necessity: Need Close Monitoring Due to Risk of Patient Decompensation
[2018-05-18] MEDS ORDERED: LEVOTHYROXINE SODIUM 0.025 MG TABLET PO SCH (08:00)
[2018-05-18] MEDS: ASPIRIN 81 MG TABLET, ENT COATED PO SCH (08:16)
[2018-05-18] MEDS: CLOPIDOGREL BISULFATE 75 MG TABLET PO SCH (08:19)
[2018-05-18] MEDS: DOCUSATE SODIUM 100 MG CAPSULE PO SCH ×2 (09:30→17:07)
[2018-05-18] MEDS ORDERED: CARVEDILOL 12.5 MG TABLET PO SCH (10:00)
[2018-05-18] MEDS ORDERED: GABAPENTIN 300 MG CAPSULE PO SCH (10:00)
--- NOTE | 2018-05-18 10:44 | EKG REPORT ---
SEVERITY:- BORDERLINE ECG - SINUS RHYTHM BORDERLINE INFERIOR Q WAVES : Confirmed by: Maxx Hernández 18-May-2018 10:43:40
[2018-05-18] MEDS: GLIMEPIRIDE 4 MG TABLET PO SCH ×2 (11:28→22:06)
[2018-05-18] MEDS ORDERED: REGADENOSON INJ 0.4 MG/5 ML DISP.SYRIN IV ONE (11:57)
[2018-05-18] MEDS ORDERED: AMINOPHYLLINE INJ/PF 250 MG/10 ML SDV IV ONE (11:57)
--- NOTE | 2018-05-18 12:39 | PDOC PROGRESS REPORT ---
Subjective Progress Note for:: 05/18/18 Subjective:: FLETCHER LONG is a 58 year old female with a complex past medical history including four-vessel bypass graft December 2017, peripheral arterial disease status post stenting, diabetes, dyslipidemia, hypertension, paroxysmal atrial fibrillation on Xarelto with sotalol and TIA. Patient presents 2 hours after the onset of shortness of breath occurring while lying flat associated with heaviness of the chest. In the emergency room she is found to have hypertensive urgency of 190/72, started on nitroglycerin and referred to the hospitalist for admission. Patient denies medication, diet or lifestyle indiscretion. She denies current pain, exertional dyspnea. She admits previous episodes occurring shortly after going to bed. She is no longer able to sleep lying flat. She admits increased leg swelling but denies productive cough, palpitations nausea or vomiting. Patient has no complaints this morning. Troponins negative patient for stress test echocardiograph. History certainly is consistent with obstructive sleep apnea Reason For Visit: CHEST PAIN CAD HTN DIABETES Physical Exam Vital Signs: Temp Pulse Resp BP Pulse Ox 97.7 F 67 18 150/62 H 99 05/18/18 07:36 05/18/18 07:36 05/18/18 07:36 05/18/18 07:36 05/18/18 09:16 Intake & Output 05/17/18 05/18/18 05/19/18 06:59 06:59 06:59 Weight 84.5 kg General appearance: PRESENT: no acute distress, well-developed, well-nourished Eye exam: PRESENT: conjunctiva pink, EOMI, PERRLA. ABSENT: scleral icterus Neck exam: ABSENT: carotid bruit, JVD, lymphadenopathy, thyromegaly Respiratory exam: PRESENT: clear to auscultation candelario. ABSENT: rales, rhonchi, wheezes Cardiovascular exam: PRESENT: RRR. ABSENT: diastolic murmur, rubs, systolic murmur GI/Abdominal exam: PRESENT: normal bowel sounds, soft. ABSENT: distended, guarding, mass, organolmegaly, rebound, tenderness Extremities exam: PRESENT: full ROM. ABSENT: calf tenderness, clubbing, pedal edema Results Laboratory Results: 05/18/18 04:31 Triglycerides 167 H Cholesterol 112.05 LDL Cholesterol Direct 48 VLDL Cholesterol 33.4 H HDL Cholesterol 30 L 05/18/18 04:31 CK-MB (CK-2) 0.71 Troponin I 0.031 Impressions: Chest X-Ray 05/17/18 21:30 IMPRESSION: Mild CHF suspected. Assessment & Plan - Diagnosis (1) Acute diastolic (congestive) heart failure Is this a current diagnosis for this admission?: Yes Plan: Chest x-ray shows mild congestive pattern. BNP obtained has been ordered and is pending. Continue current medications. Patient's history is consistent with obstructive sleep apnea which may be precipitating the heart failure echocardiogram pending troponins negative x3. Case discussed with Dr. Hernández will consult (2) Paroxysmal atrial fibrillation Is this a current diagnosis for this admission?: Yes Plan: Currently in sinus rhythm on sotalol and Xarelto (3) Current use of nursing home anticoagulation Is this a current diagnosis for this admission?: Yes Plan: Xarelto (4) Diabetes Qualifiers: Diabetes mellitus type: type 2 Is this a current diagnosis for this admission?: Yes Plan: Sliding scale coverage check hemoglobin A1c (5) Hypercholesterolemia Is this a current diagnosis for this admission?: Yes Plan: At goal on atorvastatin 80 mg daily (6) Hypertension Is this a current diagnosis for this admission?: Yes Plan: Normotensive continue to monitor no change in medications (7) Hypothyroid Is this a current diagnosis for this admission?: Yes Plan: Continue levothyroxine check TSH (8) Peripheral vascular disease Is this a current diagnosis for this admission?: Yes Plan: No workup planned - Time Time Spent with patient: 25-34 minutes
[2018-05-18 12:46] LABS: CREATINE KINASE MB 0.81 ng/mL (<4.55); TROPONIN I 0.029 ng/mL
--- NOTE | 2018-05-18 12:57 | XCELERA REPORT ---
[address] [address] Transthoracic Echocardiogram Report Name: FLETCHER LONG Age: 58 yrs Gender: Female : 1960 Patient Status: Inpatient Patient Location: [address] [place] [address] Study Date: 05/18/2018 09:31 AM Procedure: A complete two-dimensional transthoracic echocardiogram was performed (2D, M-mode, spectral and color flow Doppler). The study was technically difficult with many images being suboptimal in quality. Reason For Study: Diastolic heart failure versus pulmonary hypertens Ordering Physician: SILAS BOLIVAR Performed By: Yahaira Zhang Interpretation Summary Left ventricular systolic function is low normal. Doppler measurements suggest pseudonormalized left ventricular relaxation, which is associated with grade II/IV or mild to moderate diastolic dysfunction There is mild concentric left ventricular hypertrophy. The left ventricle is grossly normal size. Regional wall motion abnormalities cannot be excluded due to limited visualization. The right ventricular systolic function is normal. The left atrium is mildly dilated. The right atrium is normal in size There is a trace amount of mitral regurgitation There is no mitral valve stenosis. No aortic regurgitation is present. There is no aortic valve stenosis No tricuspid regurgitation. There is no tricuspid stenosis. The aortic root is not well visualized. The inferior vena cava appeared normal and decreased > 50% with respiration (RAP 5-10 mmHg) There is no pericardial effusion. Consider alternative methods to evaluate LVEF such as MUGA scan, cardiac MRI, or cardiac CTA. MMode/2D Measurements & Calculations RVDd: 3.1 cm LVIDd: 5.2 cm FS: 34.5 % Ao root diam: 2.4 cm IVSd: 0.90 cm LVIDs: 3.4 cm EDV(Teich): 132.1 ml Ao root area: 4.7 cm2 LVPWd: 1.0 cm ESV(Teich): 48.6 ml EF(Teich): 63.2 % Doppler Measurements & Calculations MV E max monster: MV dec slope: PA V2 max: PI end-d monster: 87.2 cm/sec 94.0 cm/sec 86.1 cm/sec MV A max monster: 747.8 cm/sec2 PA max P.1 cm/sec MV dec time: 0.12 sec 3.5 mmHg MV E/A: 1.4 Left Ventricle The left ventricle is grossly normal size. There is mild concentric left ventricular hypertrophy. Left ventricular systolic function is low normal. Doppler measurements suggest pseudonormalized left ventricular relaxation, which is associated with grade II/IV or mild to moderate diastolic dysfunction. Regional wall motion abnormalities cannot be excluded due to limited visualization. Right Ventricle The right ventricle is grossly normal size. There is normal right ventricular wall thickness. The right ventricular systolic function is normal. Atria The right atrium is normal in size. The left atrium is mildly dilated. Interarterial septum not well visualized and not well dopplered. Cannot comment on ASD/PFO presence. Mitral Valve The mitral valve is not well visualized. There is no mitral valve stenosis. There is a trace amount of mitral regurgitation. Aortic Valve The aortic valve is not well visualized secondary to technical limitations. The aortic valve opens well. There is no aortic valve stenosis. No aortic regurgitation is present. Tricuspid Valve The tricuspid valve is not well visualized secondary to technical limitations. There is no tricuspid stenosis. No tricuspid regurgitation. Pulmonic Valve The pulmonic valve is not well visualized. Great Vessels The aortic root is not well visualized. The inferior vena cava appeared normal and decreased > 50% with respiration (RAP 5-10 mmHg). Effusions There is no pericardial effusion. Incidental Findings Consider alternative methods to evaluate LVEF such as MUGA scan, cardiac MRI, or cardiac CTA. : SILAS BOLIVAR > Maxx Hernández
--- NOTE | 2018-05-18 13:09 | DRAGON STRESS TEST REPORT ---
INTRAVENOUS LEXISCAN CARDIOLITE STRESS TEST USING SINGLE PHOTON EMMISION COMPUTERIZED TOMOGRAPHIC. DATE OF PROCEDURE: May 18, 2018, INDICATION : Chest pain CARDIAC RISK FACTORS: Diabetes, hypertension, dyslipidemia RESTING EKG: Sinus rhythm, LVH with secondary ST-T wave changes. STRESS EKG: No significant additional ST segment changes noted with LexiScan bolus REASON FOR TERMINATION: Protocol. PROCEDURE REPORT: Baseline heart rate 74 beats per minute with blood pressure of 183/81. Patient had no significant complaints. Patient was bolused with Lexiscan 0.4 mg intravenously followed by saline bolus. Heart rate at 2 minutes post bolus 83 with a blood pressure of 125/56. 3 minutes post bolus heart rate 81 with blood pressure of 190/82. No significant EKG changes were noted. Patient had no significant complaints during the procedure or postprocedure. CONCLUSIONS: Normal EKG and hemodynamic response to IV LexiScan. NUCLEAR DATA: At rest the patient was given 10.81 millicuries of technetium 99 sestamibi injected intravenously. As per protocol rest gated SPECT images were obtained. On day of stress test, the patient was given intravenous LexiScan at a dose of 0.4 mg in 5 mL intravenously, followed by flush with normal saline. Subsequently the stress dose of 30.4 millicuries of technetium 99 sestamibi was injected intravenously. As per protocol stress gated images were obtained. NUCLEAR INTERPRETATION: Both raw and processed data were used for interpretation. Visual, qualitative, computer-generated quantitative data was used. There was good myocardial uptake of technetium compound. Motion artifact and soft tissue attenuations were noted. Increased visceral uptake was noted. Decreased uptake, consistent with moderate perfusion defect noted in the distal anterior wall, apex and inferoapex of the left ventricle. This is more prominent and stress imaging as compared to rest imaging therefore indicates ischemia with underlying scar. EKG gated imaging showed LV EF at 46 %, rest and stress gated EF similar visually. T. I D. ratio was 1.41. Lung heart ratio noted to be within normal limits 0.40. No significant extracardiac and abnormal radiotracer activities were noted. RV free wall uptake was noted to be increased. IMPRESSION: Also refer to comments under nuclear interpretation. Also test results needs to be interpreted in the context of pretest probability. 1. Moderate ischemia noted involving the distal anterior wall, apex and inferoapex of the left ventricle with a smaller underlying fixed defect. 2. Smaller fixed defect noted involving the LV apex and inferoapex. 3. EKG gated imaging shows left ventricular ejection fraction of approx. 46 %. Transient ischemic dilatation ratio is noted to be increased but did not seem visually significant. RV free wall uptake is noted to be increased. 4. Clinical correlation requested as worse disease and or balanced ischemia could be missed. In approximately 10% of the cases Lexiscan may not cause adequate vasodilatory stress. RECOMMENDATIONS: Aggressive risk factor modification and medical management. Further evaluation may be needed if continued symptoms or other high risk indicators are noted on clinical evaluation. Low threshold for heart catheterization if significant symptoms. Close cardiology follow-up is also recommended. Clinical correlation with echocardiogram derived ejection fraction. Inability to exercise by itself can lead to increased cardiovascular event risks. Consider cardiology consultation and or follow-up if clinically indicated. I am available for cardiology evaluation and consultation if requested by the scoop operator, unless patient already has a practical nursing instructor. Dr. Bhavik Hernández. MRCP Board certified in cardiology and sleep medicine. Board certified in nuclear cardiology, adult echocardiography. HARMAN
[2018-05-18] MEDS ORDERED: LEVOTHYROXINE SODIUM 0.025 MG TABLET PO ONE (14:30)
[2018-05-18] MEDS ORDERED: ACETAMINOPHEN 325 MG TABLET PO PRN (14:40)
[2018-05-18 16:41] LABS: CREATINE KINASE MB 0.85 ng/mL (<4.55); TROPONIN I 0.029 ng/mL
[2018-05-18] MEDS: RIVAROXABAN 15 MG TABLET PO SCH (17:47)
[2018-05-18] MEDS: GABAPENTIN 300 MG CAPSULE PO SCH (17:49)
[2018-05-18] MEDS: INSULIN GLARGINE,HUM.REC.ANLOG 300 UNIT/3 ML INSULN.PEN SUBCUT SCH (17:50)
[2018-05-18] MEDS ORDERED: MIRTAZAPINE 15 MG TABLET PO SCH (18:00)
[2018-05-18] MEDS ORDERED: (PENDING PHARMACY ID) (Mirtazapine [Remeron] 45 MG) PO SCH (18:00)
[2018-05-18] MEDS ORDERED: BUPROPION HCL 75 MG TABLET PO SCH (22:00)
[2018-05-18] MEDS: ATORVASTATIN CALCIUM 80 MG TABLET PO SCH (22:05)
[2018-05-18] MEDS: MIRTAZAPINE 15 MG TABLET PO SCH (22:06)
[2018-05-18] MEDS: SOTALOL HCL 80 MG TABLET PO SCH (22:08)
--- NOTE | 2018-05-18 22:21 | Progress Note ---
Provider Note Provider Note: Patient was seen during the stress test and also after the stress test. 2D echo results showed lower limits of normal LVEF. Nuclear stress test did show an area of moderate ischemia in the distal anterior wall, apex and inferoapex. Patient just had CABG with a JOHNSON graft in November 2017. Noted to have mild renal dysfunction. Feel that at this point will recommend optimization of medical management and see how patient does. If patient continues to have chest pain on ambulation, then will consider referral for heart catheterization. Patient was encouraged to ambulate.
[2018-05-18] MEDS ORDERED: METOPROLOL SUCCINATE 25 MG TAB.SR.24H PO ONE (23:00)
[2018-05-19 06:15] LABS: CHOLESTEROL 112.84 mg/dL (0-200); CREATINE KINASE 44 U/L (30-135); TRIGLYCERIDES 157 mg/dL (<150)
[2018-05-19] MEDS: BUPROPION HCL 100 MG TABLET PO SCH ×3 (06:16→23:41)
[2018-05-19] MEDS: LEVOTHYROXINE SODIUM 0.05 MG TABLET PO SCH (06:16)
[2018-05-19 06:26] LABS: DIRECT LDL 66 mg/dL (<100)
[2018-05-19 06:29] LABS: VLDL CHOLESTEROL 31.4 mg/dL (10-31)
[2018-05-19] MEDS ORDERED: CLOPIDOGREL BISULFATE 75 MG TABLET PO SCH (08:00)
--- NOTE | 2018-05-19 09:12 | EKG REPORT ---
SEVERITY:- ABNORMAL ECG - SINUS RHYTHM NONSPECIFIC T ABNORMALITIES, DIFFUSE LEADS VS ISCHEMIA VS LVH : Confirmed by: Maxx Hernández 19-May-2018 09:11:25
[2018-05-19] MEDS ORDERED: METOPROLOL SUCCINATE 25 MG TAB.SR.24H PO SCH (10:00)
[2018-05-19] MEDS ORDERED: AMLODIPINE BESYLATE 5 MG TABLET PO SCH (10:00)
[2018-05-19] MEDS: ASPIRIN 81 MG TABLET, ENT COATED PO SCH (10:14)
[2018-05-19] MEDS: SOTALOL HCL 80 MG TABLET PO SCH ×2 (10:14→22:32)
[2018-05-19] MEDS: CLOPIDOGREL BISULFATE 75 MG TABLET PO SCH (10:14)
[2018-05-19] MEDS: GLIMEPIRIDE 4 MG TABLET PO SCH ×2 (10:14→22:34)
[2018-05-19] MEDS: DOCUSATE SODIUM 100 MG CAPSULE PO SCH ×2 (10:15→17:12)
[2018-05-19] MEDS: METOPROLOL SUCCINATE 25 MG TAB.SR.24H PO SCH ×2 (10:15→22:31)
[2018-05-19] MEDS ORDERED: NORMAL SALINE 1000 ML 1,000 ML IV PRN (16:15)
--- NOTE | 2018-05-19 16:38 | PDOC TRANSFER SUMMARY ---
General Admission Date/PCP: 05/18/18 02:19 Resuscitation Status: Full Code - Transfer Diagnosis (1) Coronary artery disease Is this a current diagnosis for this admission?: Yes Diagnosis Summary: Patient had a chest pain and pressure which woke her up from a sound sleep overnight oximetry consistent with significant hypercapnia is an apneas precipitating angina. Stress test showed reversible defect in the apical anterior and inferior ulloa with dilatation (2) Acute diastolic (congestive) heart failure Is this a current diagnosis for this admission?: Yes Diagnosis Summary: On admission patient had mild congestive pattern on x-ray with a B and P of 3200 (3) Paroxysmal atrial fibrillation Is this a current diagnosis for this admission?: Yes Diagnosis Summary: On sotalol in sinus rhythm last dose of Xarelto 5 PM 05/18/2018 (4) Current use of alf anticoagulation Is this a current diagnosis for this admission?: Yes (5) Diabetes Is this a current diagnosis for this admission?: Yes Diagnosis Summary: Hemoglobin A1c 9.1 (6) Hypercholesterolemia Is this a current diagnosis for this admission?: Yes Diagnosis Summary: On 80 of Lipitor statins at goal (7) Hypertension Is this a current diagnosis for this admission?: Yes (8) Hypothyroid Is this a current diagnosis for this admission?: Yes Diagnosis Summary: TSH 7.33 with a free T4 of 1.33 (9) Peripheral vascular disease Is this a current diagnosis for this admission?: Yes (10) Obstructive sleep apnea Is this a current diagnosis for this admission?: Yes - Transfer Medications Home Medications: Atorvastatin Calcium [Lipitor 80 mg Tablet] 80 mg PO QHS 05/18/18 Gabapentin [Neurontin 300 mg Capsule] 600 mg PO QPM 05/18/18 Insulin Glargine,Hum.rec.anlog [Lantus Solostar] 14 units SQ WSUPPER 05/18/18 Levothyroxine Sodium [Synthroid] 50 mcg PO Q6AM 05/18/18 Mirtazapine [Remeron] 45 mg PO QPM 05/18/18 Sotalol HCl [Sotalol] 40 mg PO Q12 05/18/18 Transfer Medications: Current Medications Acetaminophen (Tylenol 325 Mg Tablet) 650 mg PO Q4HP PRN PRN Reason: HEADACHE Stop: 06/17/18 14:39 Last Admin: 05/18/18 15:43 Dose: 650 mg Acetylcysteine (Mucomist 20% Soln 800 Mg/4 Ml) 600 mg PO BID DANIELA Stop: 05/21/18 10:01 Al Hydrox/Mg Hydrox/Simethicone (Maalox Plus Susp 30 Udcup) 30 ml PO Q4HP PRN PRN Reason: HEARTBURN Stop: 06/17/18 02:12 Amlodipine Besylate (Norvasc 5 Mg Tablet) 5 mg PO DAILY DANIELA Stop: 06/18/18 09:59 Last Admin: 05/19/18 10:14 Dose: 5 mg Aspirin (Ecotrin 81 Mg Ec Tablet) 81 mg PO QAM DANIELA Stop: 06/17/18 07:59 Atorvastatin Calcium (Lipitor 80 Mg Tablet) 80 mg PO QHS DANIELA Stop: 06/17/18 21:59 Last Admin: 05/18/18 22:05 Dose: 80 mg Bupropion HCl (Wellbutrin 100 Mg Tablet) 100 mg PO Q8 DANIELA Stop: 06/17/18 05:59 Last Admin: 05/19/18 14:15 Dose: 100 mg Clopidogrel Bisulfate (Plavix 75 Mg Tablet) 75 mg PO QAM DANIELA Stop: 06/17/18 07:59 Last Admin: 05/19/18 10:14 Dose: 75 mg Dextrose (Dextrose Inj 50% Syringe (25 Gm/50 Ml)) 12.5 gm IV PRN PRN; Protocol PRN Reason: FOR BG 50-69 IN ALERT PATIENT Stop: 06/17/18 02:12 Dextrose (Dextrose Inj 50% Syringe (25 Gm/50 Ml)) 25 gm IV PRN PRN; Protocol PRN Reason: PER PROTOCOL Stop: 06/17/18 02:12 Docusate Sodium (Colace 100 Mg Capsule) 100 mg PO BID DANIELA Stop: 06/17/18 09:59 Last Admin: 05/19/18 10:15 Dose: Not Given Gabapentin (Neurontin 300 Mg Capsule) 600 mg PO QPM DANIELA Stop: 06/17/18 17:59 Last Admin: 05/18/18 17:49 Dose: 600 mg Glimepiride (Amaryl 4 Mg Tablet) 4 mg PO Q12 DANIELA Stop: 06/17/18 09:59 Last Admin: 05/19/18 10:14 Dose: 4 mg Glucagon (Glucagen Inj 1 Mg Vial) 1 mg IM PRN PRN; Protocol PRN Reason: Evaluate for BG < 70 Stop: 06/17/18 02:12 Glucose (Glutose 40% Gel 15 Gm Tube) 15 gm PO PRN PRN; Protocol PRN Reason: FOR BG 50-69 IN ALERT PATIENT Stop: 06/17/18 02:12 Glucose (Glutose 40% Gel 15 Gm Tube) 30 gm PO PRN PRN; Protocol PRN Reason: FOR BG < 50 IN ALERT PATIENT Stop: 06/17/18 02:12 Hydralazine HCl (Apresoline Inj/Pf 20 Mg/1 Ml Sdv) 10 mg IV Q6HP PRN PRN Reason: Sbp>160 Stop: 06/17/18 06:00 Sodium Chloride (Nacl 0.9% 1000 Ml Iv Soln) 1,000 mls @ 100 mls/hr IV CONTINUOUS PRN PRN Reason: THIS MED IS NOT "PRN" Stop: 06/18/18 16:14 Insulin Glargine (Lantus Insulin Inj 300 Unit/3 Ml Pen) 14 unit SUBCUT WSUPPER [facility] Stop: 06/17/18 16:59 Last Admin: 05/18/18 17:50 Dose: 14 units Insulin Human Lispro (Humalog Insulin 100 Unit/1 Ml 3 Ml Vial) 0 - 12 unit SUBCUT Q6HP PRN; Protocol PRN Reason: PER PROTOCOL Stop: 06/17/18 02:12 Levothyroxine Sodium (Synthroid 0.05 Mg Tablet) 0.05 mg PO Q6AM [facility] Stop: 06/18/18 05:59 Last Admin: 05/19/18 06:16 Dose: 0.05 mg Metoprolol Succinate (Toprol Xl 25 Mg Tab.Sr) 25 mg PO Q12 [facility] Stop: 06/18/18 09:59 Last Admin: 05/19/18 10:15 Dose: 25 mg Mirtazapine (Remeron 15 Mg Tablet) 45 mg PO QPM [facility] Stop: 06/17/18 17:59 Last Admin: 05/18/18 22:06 Dose: 45 mg Nitroglycerin (Nitrostat 0.4 Mg (1/150 Gr) Tabs 25/Bottle) 1 tab SL Q5MP PRN PRN Reason: FOR CHEST PAIN Rivaroxaban (Xarelto 15 Mg Tablet) 15 mg PO WSUPPER [facility] Stop: 06/17/18 16:59 Last Admin: 05/18/18 17:47 Dose: 15 mg Sodium Chloride (Saline Flush 2.5 Ml Monoject Prefil Syrin) 2.5 ml IV Q8 DANIELA Stop: 06/17/18 05:59 Last Admin: 05/19/18 14:15 Dose: 2.5 ml Sotalol HCl (Betapace 80 Mg Tablet) 40 mg PO Q12 DANIELA Stop: 06/17/18 21:59 Last Admin: 05/19/18 10:14 Dose: 40 mg - Allergies Allergies/Adverse Reactions: niacin [Niacin] Allergy (Verified 01/01/18 11:51) simvastatin [Simvastatin] Allergy (Verified 01/01/18 11:51) benedryl Adverse Reaction (Uncoded 01/01/18 11:51) Hospital Course Hospital Course: FLETCHER LONG is a 58 year old female with a complex past medical history including four-vessel bypass graft December 2017, peripheral arterial disease status post stenting, diabetes, dyslipidemia, hypertension, paroxysmal atrial fibrillation on Xarelto with sotalol and TIA. Patient presents 2 hours after the onset of shortness of breath occurring while lying flat associated with heaviness of the chest. In the emergency room she is found to have hypertensive urgency of 190/72, started on nitroglycerin and referred to the hospitalist for admission. Patient denies medication, diet or lifestyle indiscretion. She denies current pain, exertional dyspnea. She admits previous episodes occurring shortly after going to bed. She is no longer able to sleep lying flat. Patient was admitted to the telemetry bed. She was diuresed and her mild congestive heart failure resolved quite quickly. Because her history was very consistent with a sleep apneic episode that precipitated angina a nuclear stress test was ordered as well as an echocardiogram. Echocardiogram showed no significant valvulopathy there was grade 2 diastolic dysfunction and a borderline low ejection fraction. Nuclear stress test was obtained which showed a gated ejection fraction of 46% showed anterior apical inferior reperfusion deficit with dilatation under stress. A consultation with cardiology was obtained and Dr. Hernández felt the patient could be maximized on medical therapy had any further chest pain with exertion could undergo cardiac catheterization. The concern with the patient's presentation having an nocturnal episode of chest pain and an overnight oximetry which documented significant hypercapnia is an apneas with saturations dropping to 78% and apneas as long as 132 seconds. It was felt that patient was at risk for precipitating an anoxic cardiac event due to undiagnosed sleep apnea. Contact was made with her treating shipping helper Dr. Estevez and the test results were sent to his office. After discussion it was decided the best course of action is for patient undergo cardiac catheterization to identify restenosis in any of her grafts and an expeditious arrangement for a sleep study to get her sleep apnea treated. The patient was accepted by Dr. Green at [facility] to [facility]. Because patient had a creatinine of 1.45 normal saline at 100 was started prior to transfer patient Xarelto was held on 05/19/2018 Plavix was continued. Patient was initiated on Mucomyst for renal protective in anticipation of contrast load in the next 24-48 hours. Physical Exam Vital Signs: Temp Pulse Resp BP Pulse Ox 97.8 F 65 16 152/69 H 100 05/19/18 11:04 05/19/18 14:00 05/19/18 11:04 05/19/18 11:04 05/19/18 11:04 Pulse Oximeter Nocturnal Start: 05/18/18 19: 44 Freq: RTQ4 Status: Complete Document 05/19/18 07:19 CMI (Rec: 05/19/18 07:19 CMI [id number]) Nocturnal Pulse Oximetry Equipment Usage Equipment Discontinued Continuous SpO2 Machine # 10 Intake & Output 05/18/18 05/19/18 05/20/18 06:59 06:59 06:59 Intake Total 525 474 Balance 525 474 Weight 84.5 kg 84.5 kg General appearance: PRESENT: no acute distress, well-developed, well-nourished Neck exam: ABSENT: carotid bruit, JVD, lymphadenopathy, thyromegaly Respiratory exam: PRESENT: clear to auscultation candelario. ABSENT: rales, rhonchi, wheezes Cardiovascular exam: PRESENT: RRR. ABSENT: diastolic murmur, rubs, systolic murmur GI/Abdominal exam: PRESENT: normal bowel sounds, soft. ABSENT: distended, guarding, mass, organolmegaly, rebound, tenderness Extremities exam: PRESENT: full ROM. ABSENT: calf tenderness, clubbing, pedal edema Results Laboratory Results: 05/19/18 05/19/18 04:56 04:56 Triglycerides 157 H Cholesterol 112.84 LDL Cholesterol Direct 66 VLDL Cholesterol 31.4 H HDL Cholesterol 28 L Free T4 1.15 05/18/18 05/18/18 05/18/18 04:31 11:57 11:57 Creatine Kinase CK-MB (CK-2) 0.71 0.81 Troponin I 0.031 0.029 NT-Pro-B Natriuret Pep 3820 H 05/18/18 05/19/18 16:00 04:56 Creatine Kinase 44 CK-MB (CK-2) 0.85 Troponin I 0.029 NT-Pro-B Natriuret Pep Impressions: Chest X-Ray 05/17/18 21:30 IMPRESSION: Mild CHF suspected. Plan Time Spent: Greater than 30 Minutes
[2018-05-19] MEDS: RIVAROXABAN 15 MG TABLET PO SCH (17:12)
[2018-05-19] MEDS: GABAPENTIN 300 MG CAPSULE PO SCH (17:17)
[2018-05-19] MEDS: INSULIN GLARGINE,HUM.REC.ANLOG 300 UNIT/3 ML INSULN.PEN SUBCUT SCH (17:17)
[2018-05-19] MEDS: MIRTAZAPINE 15 MG TABLET PO SCH (17:18)
[2018-05-19] MEDS ORDERED: ACETYLCYSTEINE 20% SOLN 800 MG/4 ML VIAL.NEB PO SCH (18:00)
[2018-05-19] MEDS: ATORVASTATIN CALCIUM 80 MG TABLET PO SCH (22:32)
[2018-05-20] MEDS: LEVOTHYROXINE SODIUM 0.05 MG TABLET PO SCH (05:40)
[2018-05-20] MEDS: BUPROPION HCL 100 MG TABLET PO SCH (05:40)
[2018-05-20 05:41] VITALS: BP 116/50
[2018-05-20] MEDS ORDERED: ASPIRIN 81 MG TABLET, ENT COATED PO SCH (08:00)
--- NOTE | 2018-05-20 10:20 | EKG REPORT ---
SEVERITY:- ABNORMAL ECG - SINUS RHYTHM FIRST DEGREE AV BLOCK NONSPECIFIC T ABNORMALITIES, DIFFUSE LEADS : Confirmed by: Maxx Hernández 20-May-2018 10:20:07
--- NOTE | 2018-05-20 20:04 | PDOC CONSULTATION ---
Consultation Consult Date: 05/18/18 Attending physician:: ALINE KOHLER Consult reason:: Chest pain, known CAD History of Present Illness Admission Date/PCP: 05/18/18 02:19 Patient complains of: Chest pain History of Present Illness: FLETCHER LONG is a 58 year old female with a complex past medical history including four-vessel bypass graft December 2017, peripheral arterial disease status post stenting, diabetes, dyslipidemia, hypertension, paroxysmal atrial fibrillation on Xarelto with sotalol and TIA. Patient presents 2 hours after the onset of shortness of breath occurring while lying flat associated with heaviness of the chest. In the emergency room she is found to have hypertensive urgency of 190/72, started on nitroglycerin and referred to the hospitalist for admission. Patient denies medication, diet or lifestyle indiscretion. She denies current pain, exertional dyspnea. She admits previous episodes occurring shortly after going to bed. She is no longer able to sleep lying flat. She admits increased leg swelling but denies productive cough, palpitations nausea or vomiting. Patient has no complaints this morning. Troponins negative patient for stress test. History certainly is consistent with obstructive sleep apnea. This history obtained by the hospitalist was reviewed with the patient and confirmed. 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 Patient does have significant sleep related issues with difficulty falling asleep and difficulty staying asleep and multiple nocturnal awakenings as well as loud habitual snoring. Past Medical History Cardiac Medical History: Reports: Hyperlipidema, Hypertension Denies: Coronary Artery Disease, Myocardial Infarction Pulmonary Medical History: Reports: Bronchitis Denies: Asthma, Chronic Obstructive Pulmonary Disease (COPD), Pneumonia Neurological Medical History: Reports: Seizures - 3 YEARS AGO AFTER BENADRYL USE Endocrine Medical History: Reports: Diabetes Mellitus Type 2 - no medications, Hypothyroidism Renal/ Medical History: Reports: None Malignancy Medical History: Reports: None GI Medical History: Reports: None Musculoskeltal Medical History: Reports: Arthritis Psychiatric Medical History: Reports: Depression Denies: Alcohol Dependency, Substance Abuse, Tobacco Dependency Hematology: Denies: Anemia Past Surgical History Past Surgical History: Reports: Cardiac Catheterization, Coronary Artery Bypass Graft, Tubal Ligation, Vascular Surgery - Lower extremity stent placement 3 Social History Information Source: Patient Smoking Status: Former Smoker Frequency of Alcohol Use: None Hx Recreational Drug Use: No Drugs: None Hx Prescription Drug Abuse: No - Advance Directive Resuscitation Status: Full Code Family History Family History: CAD, Hypertension Parental Family History Reviewed: Yes Children Family History Reviewed: Yes Sibling(s) Family History Reviewed.: Yes Medication/Allergy Home Medications: Atorvastatin Calcium [Lipitor 80 mg Tablet] 80 mg PO QHS 05/18/18 Gabapentin [Neurontin 300 mg Capsule] 600 mg PO QPM 05/18/18 Insulin Glargine,Hum.rec.anlog [Lantus Solostar] 14 units SQ WSUPPER 05/18/18 Levothyroxine Sodium [Synthroid] 50 mcg PO Q6AM 05/18/18 Mirtazapine [Remeron] 45 mg PO QPM 05/18/18 Sotalol HCl [Sotalol] 40 mg PO Q12 05/18/18 Acetaminophen [Tylenol 325 mg Tablet] 650 mg PO Q4HP PRN tablet 05/19/18 Acetylcysteine [Mucomist 20% Soln 800 mg/4 mL] 600 mg PO BID vial 05/19/18 Amlodipine Besylate [Norvasc 5 mg Tablet] 5 mg PO DAILY tablet 05/19/18 Aspirin [Ecotrin 81 mg EC Tablet] 81 mg PO QAM tabec 05/19/18 Atorvastatin Calcium [Lipitor 80 mg Tablet] 80 mg PO QHS tablet 05/19/18 Bupropion HCl [Wellbutrin 100 mg Tablet] 100 mg PO Q8 tablet 05/19/18 Clopidogrel Bisulfate [Plavix 75 mg Tablet] 75 mg PO QAM tablet 05/19/18 Dextrose 50%-Water [Dextrose Inj 50% Syringe (25 gm/50 ml)] 12.5 gm IV PRN PRN disp.syrin 05/19/18 Dextrose 50%-Water [Dextrose Inj 50% Syringe (25 gm/50 ml)] 25 gm IV PRN PRN disp.syrin 05/19/18 Dextrose [Glutose 40% Gel 15 gm Tube] 15 gm PO PRN PRN tube 05/19/18 Dextrose [Glutose 40% Gel 15 gm Tube] 30 gm PO PRN PRN tube 05/19/18 Docusate Sodium [Colace 100 mg Capsule] 100 mg PO BID capsule 05/19/18 Insulin Lispro [Humalog Insulin (Lispro) 100 unit/mL] 0 - 12 unit SUBCUT Q6HP PRN unit 05/19/18 Mag Hydrox/Al Hydrox/Simeth [Maalox Plus Susp 30 Udcup] 30 ml PO Q4HP PRN udc 05/19/18 Metoprolol Succinate [Toprol Xl 25 mg Tab.sr] 25 mg PO Q12 tab.sr.24h 05/19/18 Nitroglycerin [Nitrostat 0.4 mg (1/150 Gr) Tabs 25/Bottle] 1 tab SL Q5MP PRN bottle 05/19/18 Normal Saline [Saline Flush 2.5 ml Monoject Prefil Syrin] 2.5 ml IV Q8 disp.syrin 05/19/18 Allergies/Adverse Reactions: niacin [Niacin] Allergy (Verified 01/01/18 11:51) simvastatin [Simvastatin] Allergy (Verified 01/01/18 11:51) benedryl Adverse Reaction (Uncoded 01/01/18 11:51) Review of Systems Review of Systems: Please see history of present illness and past medical history as wall. Constitutional: No fever or chills reported. Head : No recent chronic headaches, recent head injury. Eyes: No recent eye pain, diplopia, redness, discharge, acute visual changes. Ears: No recent chronic ear pain, acute hearing loss, ear discharge. Oral cavity: No recent ulcerations, bleeding, oral cavity discomfort. Neck: No recent acute neck pain reported. Hematologic: No recent easy bruising or bleeding. Lymphatic: No recent lymph node enlargement reported. Cardiovascular system review: See history of present illness. Respiratory system review: No hemoptysis or blood clots in the lungs reported. Mild Shortness of breath on exertion Gastrointestinal system review: Negative for any recent acute hematemesis, melena. Genitourinary system review: No recent acute or chronic hematuria, flank pain, UTI etc. reported. Skin system review: Negative for any recent abnormal bruising, no rash, no pruritus reported. Neurologic: No prior history of strokes, mini strokes, seizure disorder. Psychologic: No history of major psychosis or major depression reported. Musculoskeletal: Minor aches and pains reported. No acute joint swelling reported. Endocrine: No recent polyuria, polydipsia, recent heat or cold intolerance. Physical Exam Vital Signs: Temp Pulse Resp BP Pulse Ox 97.8 F 71 15 135/58 H 96 05/18/18 19:20 05/18/18 19:20 05/18/18 19:20 05/18/18 19:20 05/18/18 20:15 Pulse Oximeter Nocturnal Start: 05/18/18 19: 44 Freq: RTQ4 Status: Active Document 05/18/18 20:15 CMI (Rec: 05/18/18 20:27 CMI [id number]) Nocturnal Pulse Oximetry Equipment Usage Initial Set Up Nocturnal Spo2 Charge Charge Now Oxygen Delivery Method (includes room Room Air air) O2 Sat by Pulse Oximetry (92-100) 96 Continuous Pulse Oximeter Set Up Yes Continuous SpO2 Machine # 10 Additional RT Notes Other bipap in room on stand by, nocturnal pulse ox ordered for tonight on RA Intake & Output 05/17/18 05/18/18 05/19/18 06:59 06:59 06:59 Weight 84.5 kg Exam: GENERAL: well-nourished and in no acute distress. Alert and oriented x3 HEAD: Atraumatic, normocephalic. EYES: Pupils equal round and reactive to light, extraocular movements intact, sclera anicteric, conjunctiva are normal. ENT: TMs normal, nares patent, oropharynx clear without exudates. Moist mucous membranes. No oral ulcerations or bleeding gums noted NECK: supple without lymphadenopathy. Trachea is central. No cervical or axillary lymphadenopathy noted. Carotids are 2+, JVD WNL LUNGS: Respiration seems nonlabored, no significant accessory muscle action noted. Breath sounds clear to auscultation bilaterally and equal noted. No wheezes rales or rhonchi noted. No significant dullness noted on percussion. CHEST: Palpation of the chest wall shows no significant chest wall tenderness. 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 ABDOMEN: Soft, no significant tenderness appreciated, normoactive bowel sounds. No guarding, no rebound. No rigidity noted . No masses appreciated. EXTREMITIES: Pedal pulses are 1-2+, no calf tenderness noted. No clubbing or cyanosis. negative pedal edema noted NEUROLOGICAL: Focused neurological exam showed no significant neurologic deficit. Normal speech, no focal weakness appreciated. PSYCH: Normal mood, normal affect. Judgment and insight within normal limits. SKIN: No significant ecchymosis, skin is noted to be warm. MUSCULOSKELETAL EXAM: No significant acute joint swelling noted. Results Laboratory Results: 05/18/18 05/18/18 04:31 11:57 Triglycerides 167 H Cholesterol 112.05 LDL Cholesterol Direct 48 VLDL Cholesterol 33.4 H HDL Cholesterol 30 L TSH 7.33 H 05/18/18 05/18/18 05/18/18 04:31 11:57 11:57 CK-MB (CK-2) 0.71 0.81 Troponin I 0.031 0.029 NT-Pro-B Natriuret Pep 3820 H 05/18/18 16:00 CK-MB (CK-2) 0.85 Troponin I 0.029 NT-Pro-B Natriuret Pep EKG Comments: Twelve-lead EKG shows ST segment depression consistent with ischemia Impressions: Chest X-Ray 05/17/18 21:30 IMPRESSION: Mild CHF suspected. Assessment & Plan - Diagnosis (1) Chest pain Qualifiers: Chest pain type: unspecified Qualified Code(s): R07.9 - Chest pain, unspecified Is this a current diagnosis for this admission?: Yes (2) Coronary artery disease Qualifiers: Coronary Disease-Associated Artery/Lesion type: unspecified vessel or lesion type [place] vs. transplanted heart: [place] heart Associated angina: angina presence unspecified Qualified Code(s): I25.10 - Atherosclerotic heart disease of [place] coronary artery without angina pectoris Is this a current diagnosis for this admission?: Yes (3) Diabetes Qualifiers: Diabetes mellitus type: type 2 Diabetes mellitus nursing home insulin use: unspecified nursing home insulin use status Diabetes mellitus complication status : with unspecified complications Qualified Code(s): E11.8 - Type 2 diabetes mellitus with unspecified complications Is this a current diagnosis for this admission?: Yes (4) Dyspnea Qualifiers: Dyspnea type: dyspnea on exertion Qualified Code(s): R06.09 - Other forms of dyspnea Is this a current diagnosis for this admission?: Yes (5) Hypertension Qualifiers: Hypertension type: essential hypertension Qualified Code(s): I10 - Essential (primary) hypertension Is this a current diagnosis for this admission?: Yes (6) Obstructive sleep apnea Is this a current diagnosis for this admission?: Yes (7) Paroxysmal atrial fibrillation Is this a current diagnosis for this admission?: Yes (8) Peripheral vascular disease Is this a current diagnosis for this admission?: Yes - Notes Notes: Chest pain: Patient has some typical and atypical features of chest pain. Cardiac enzymes so far has been negative. Electrocardiogram did not show any definitive ST segment changes. Multiple differential diagnoses exist in this patient. In descending order of probability this includes underlying coronary artery disease, gastroesophageal reflux, musculoskeletal pain, referred pain from elsewhere, anxiety panic disorder etc.Patient has significant cardiac risk factors, which indicates that there is a intermediate probability of chest discomfort coming from underlying CAD. Feel that it would need to be evaluated further. Discussed evaluation to assess this. In this regard risk benefits of nuclear stress test and other alternative processes were discussed in detail. The patient prefers to undergo nuclear stress test. The small risk of radiation , myocardial infarction, , cardiac arrhythmias, respiratory distress etc. were discussed. Patient understood the risks and gave informed consent. Nuclear stress test was therefore scheduled. For risk evaluation, patient is also being scheduled for a 2-D echocardiogram. Patient questions were answered. CAD: Patient has known history of CAD. Currently admitted with chest pain and had recurrence during the stress test. Now chest pain-free. There were no EKG changes and enzymes are negative. Patient will benefit from a nuclear stress test. Patient will also benefit from a 2-D echocardiogram for risk stratification. Patient to be treated with antiplatelet therapy, high potency statin therapy, beta blockers, angiotensin receptor maria g, ISAIAS inhibitors et cetera. Patient advised against tobacco abuse in any form. Patient to follow healthy lifestyle, low-cholesterol diet et cetera. Hypertension: Reasonably well controlled. Blood pressure goal in this patient is 135/85 or less. This was discussed with the patient. Currently blood pressure under reasonable control. Better medication for this patient are ISAIAS inhibitor/ARB/beta maria g etc. discussed side effects of uncontrolled hypertension and also severe hypotension. Diabetes: Recommend good control of blood sugar. However should avoid any hypoglycemia and hyperglycemia. Patient being expertly managed by primary care M.D/hospitalist Atrial fibrillation paroxysmal: Currently patient maintaining sinus rhythm. Continue with Xarelto and other agents for heart rate control. PVD: No acute limb ischemia noted. Based on previous evaluation, patient has significant PVD. Further evaluation can be performed as an outpatient. Dyspnea: Possibly multifactorial. Need to rule out ischemia equivalent as cause. Patient therefore being scheduled for a nuclear stress test and also being scheduled for a 2D echocardiogram. Obstructive sleep apnea: This is being strongly suspected based on patient history, comorbid diagnosis and oropharyngeal exam. Patient is agreeable to schedule a sleep study as an outpatient. This will be considered. - Time Time Spent: 30 to 50 Minutes - CODE STATUS was discussed, patient remains full code. Surrogate decision-maker unchanged. Multiple medical problems were addressed. More than 50% of the time spent coordinating care, discussing management plans with involved caregivers. Management plans discussed with involved personnels. Medical decision making was of moderate to high complexity , patient's has multiple comorbidities. Medications reviewed and adjusted accordingly: Yes
--- NOTE | 2018-05-20 20:11 | PDOC PROGRESS REPORT ---
Subjective Progress Note for:: 05/19/18 Subjective:: Patient had nuclear stress test. Patient apparently had desaturation events last night and was noted to have some chest pain. Results of nuclear stress test were reviewed with the patient. It is felt that patient could either opt for medical management or go for heart catheterization. This morning is denying any chest arm or neck discomfort. Patient denying any PND, orthopnea. Patient denied any sustained palpitations, dizziness, syncope, near syncope. Patient denying any fever chills. Patient denying any other significant discomfort. Patient is maintaining sinus rhythm. Review of systems: Rest review of systems negative. Medications: Medications have been reviewed. Reason For Visit: ACUTE DIASTOLIC CONGESTIVE HEART FAILURE Physical Exam Vital Signs: Temp Pulse Resp BP Pulse Ox 98.1 F 67 18 143/57 H 100 05/19/18 15:10 05/19/18 15:10 05/19/18 15:10 05/19/18 15:10 05/19/18 15:10 Pulse Oximeter Nocturnal Start: 05/18/18 19: 44 Freq: RTQ4 Status: Complete Document 05/19/18 07:19 CMI (Rec: 05/19/18 07:19 CMI [id number]) Nocturnal Pulse Oximetry Equipment Usage Equipment Discontinued Continuous SpO2 Machine # 10 Intake & Output 05/18/18 05/19/18 05/20/18 06:59 06:59 06:59 Intake Total 525 474 Balance 525 474 Weight 84.5 kg 84.5 kg Exam: GENERAL: well-nourished and in no acute distress. Alert and oriented x3 HEAD: Atraumatic, normocephalic. EYES: Pupils equal round and reactive to light, extraocular movements intact, sclera anicteric, conjunctiva are normal. ENT: TMs normal, nares patent, oropharynx clear without exudates. Moist mucous membranes. No oral ulcerations or bleeding gums noted NECK: supple without lymphadenopathy. Trachea is central. No cervical or axillary lymphadenopathy noted. Carotids are 2+, JVD WNL LUNGS: Respiration seems nonlabored, no significant accessory muscle action noted. Breath sounds clear to auscultation bilaterally and equal noted. No wheezes rales or rhonchi noted. No significant dullness noted on percussion. CHEST: Palpation of the chest wall shows no significant chest wall tenderness. 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 ABDOMEN: Soft, no significant tenderness appreciated, normoactive bowel sounds. No guarding, no rebound. No rigidity noted . No masses appreciated. EXTREMITIES: Pedal pulses are 1-2+, no calf tenderness noted. No clubbing or cyanosis. negative pedal edema noted NEUROLOGICAL: Focused neurological exam showed no significant neurologic deficit. Normal speech, no focal weakness appreciated. PSYCH: Normal mood, normal affect. Judgment and insight within normal limits. SKIN: No significant ecchymosis, skin is noted to be warm. MUSCULOSKELETAL EXAM: No significant acute joint swelling noted. Results Laboratory Results: 05/19/18 05/19/18 04:56 04:56 Triglycerides 157 H Cholesterol 112.84 LDL Cholesterol Direct 66 VLDL Cholesterol 31.4 H HDL Cholesterol 28 L Free T4 1.15 05/18/18 05/18/18 05/18/18 04:31 11:57 11:57 Creatine Kinase CK-MB (CK-2) 0.71 0.81 Troponin I 0.031 0.029 NT-Pro-B Natriuret Pep 3820 H 05/18/18 05/19/18 16:00 04:56 Creatine Kinase 44 CK-MB (CK-2) 0.85 Troponin I 0.029 NT-Pro-B Natriuret Pep EKG Comments: Twelve-lead EKG obtained shows sinus rhythm with some ST segment depression consistent with ischemia Impressions: Chest X-Ray 05/17/18 21:30 IMPRESSION: Mild CHF suspected. Assessment & Plan - Diagnosis (1) Chest pain Qualifiers: Chest pain type: unspecified Qualified Code(s): R07.9 - Chest pain, unspecified Is this a current diagnosis for this admission?: Yes (2) Coronary artery disease Qualifiers: Coronary Disease-Associated Artery/Lesion type: unspecified vessel or lesion type [place] vs. transplanted heart: [place] heart Associated angina: angina presence unspecified Qualified Code(s): I25.10 - Atherosclerotic heart disease of [place] coronary artery without angina pectoris Is this a current diagnosis for this admission?: Yes (3) Diabetes Qualifiers: Diabetes mellitus type: type 2 Diabetes mellitus snf insulin use: unspecified snf insulin use status Diabetes mellitus complication status : with unspecified complications Qualified Code(s): E11.8 - Type 2 diabetes mellitus with unspecified complications Is this a current diagnosis for this admission?: Yes (4) Dyspnea Qualifiers: Dyspnea type: dyspnea on exertion Qualified Code(s): R06.09 - Other forms of dyspnea Is this a current diagnosis for this admission?: Yes (5) Hypertension Qualifiers: Hypertension type: essential hypertension Qualified Code(s): I10 - Essential (primary) hypertension Is this a current diagnosis for this admission?: Yes (6) Obstructive sleep apnea Is this a current diagnosis for this admission?: Yes (7) Paroxysmal atrial fibrillation Is this a current diagnosis for this admission?: Yes (8) Peripheral vascular disease Is this a current diagnosis for this admission?: Yes - Notes Notes: We had a long discussion regarding results of nuclear stress test, 2D echocardiogram. Patient has significant vascular disease including coronary artery disease as well as peripheral vascular disease. Discussed that she could have progression of [place] vessel and also graft disease. The ischemia was noted in the LAD territory of moderate severity. It was mutually decided that it may be worthwhile to pursue a heart catheterization but patient was encouraged to ambulate and see how she does. Patient medical management was optimized. Patient being placed on Ranexa. Patient also being placed on high potency statin therapy. Patient has numerous other medical problems which are stable. Management plans discussed with the patient. Discussed that sleep apnea is a significant cardiac risk factors. Discussed that she will benefit from scheduling a sleep study. She is agreeable to schedule that. - Time Time with patient: Greater than 35 minutes - CODE STATUS was discussed, patient remains full code. Surrogate decision-maker unchanged. Multiple medical problems were addressed. More than 50% of the time spent coordinating care, discussing management plans with involved caregivers. Management plans discussed with involved personnels. Medical decision making was of moderate to high complexity, patient's has multiple comorbidities. Medications reviewed and adjusted accordingly: Yes
== END 2018-05-20 07:30 | disposition short-term general hospital (02) | DRG 291 ==
LOC: ER 21:27 → OBSVTOIN 05-18 02:19 → EH 05-18 02:19 → 4S 05-18 04:23
PROVIDERS: ADMIT Internal Medicine; ATTEND Internal Medicine
DX: I11.0 Hypertensive heart disease with heart failure (principal); I50.31 Acute diastolic (congestive) heart failure; I16.0 Hypertensive urgency; I48.0 Paroxysmal atrial fibrillation; I25.10 Atherosclerotic heart disease of native coronary artery without angina pectoris; E11.8 Type 2 diabetes mellitus with unspecified complications; E03.9 Hypothyroidism, unspecified; I73.9 Peripheral vascular disease, unspecified; G47.33 Obstructive sleep apnea (adult) (pediatric); E78.00 Pure hypercholesterolemia, unspecified; F32.9 Major depressive disorder, single episode, unspecified; Z79.01 Long term (current) use of anticoagulants; Z86.73 Personal history of transient ischemic attack (TIA), and cerebral infarction without residual deficits; Z95.1 Presence of aortocoronary bypass graft; Z79.84 Long term (current) use of oral hypoglycemic drugs; Z79.82 Long term (current) use of aspirin; Z79.899 Other long term (current) drug therapy
CPT/HCPCS: 36415; 71045; 78452; 80053; 80061; 82550; 82553; 82962; 83036; 83880; 84439; 84443; 84484; 85025; 85610; 85730; 93005; 93010; 93017; 93306; 94762; 99285; A9500; G0378; J0280; J1644; J1815; J2785; J3490; J7030; Q9969

== ENCOUNTER 2018-05-25 20:08 | Emergency (ER) | payer OTHER, MEDICAID ==
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
[2018-05-25] MEDS ORDERED: TRANEXAMIC ACID INJ/PF 1,000 MG/10 ML SDV IV ONE (21:06)
[2018-05-25 22:18] LABS: ABSOLUTE BASOPHILS # (AUTO) 0.2 10^3/uL (0.0-0.2); ABSOLUTE EOSINOPHILS # (AUTO) 0.6 10^3/uL (0.0-0.6); ABSOLUTE LYMPHOCYTES (AUTO) 1.4 10^3/uL (0.5-4.7); ABSOLUTE MONOCYTES (AUTO) 1.3 10^3/uL (0.1-1.4); ABSOLUTE NEUT (AUTO) 15.3 10^3/uL (1.7-8.2); BASOPHILS % (AUTO) 0.9 % (0-2); EOSINOPHILS % (AUTO) 3.3 % (0-6); HEMATOCRIT 32.2 % (36.0-47.0); HEMOGLOBIN 10.7 g/dL (12.0-15.5); LYMPHOCYTES % (AUTO) 7.4 % (13-45); MEAN CORPUSCULAR HGB CONC 33.3 g/dL (32.0-36.0); MEAN CORPUSCULAR VOLUME 87 fl (80-97); MONOCYTES % (AUTO) 7.2 % (3-13); PLATELET COUNT 325 10^3/uL (150-450); RED BLOOD COUNT 3.68 10^6/uL (3.72-5.28); SEGMENTED NEUTROPHILS % (AUTO) 81.2 % (42-78); TOTAL CELLS COUNTED % (AUTO) 100 %; WHITE BLOOD COUNT 18.8 10^3/uL (4.0-10.5)
[2018-05-25 22:36] LABS: ANION GAP 14 (5-19); BLOOD UREA NITROGEN 31 mg/dL (7-20); CALCIUM 9.3 mg/dL (8.4-10.2); CARBON DIOXIDE 26 mmol/L (22-30); CHLORIDE 101 mmol/L (98-107); GLUCOSE 243 mg/dL (75-110); POTASSIUM 4.6 mmol/L (3.6-5.0); SODIUM 140.7 mmol/L (137-145)
[2018-05-25] MEDS ORDERED: MORPHINE SULFATE 10 MG/ML INJ IV ONE (22:43)
[2018-05-25] MEDS ORDERED: ONDANSETRON HCL INJ/PF 4 MG/2 ML SDV IV ONE (22:44)
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
[2018-05-26] MEDS ORDERED: LIDOCAINE 1%/EPINEPHRINE INJ 20 ML VIAL INJ ONE (00:29)
[2018-05-26] MEDS ORDERED: CEPHALEXIN 500 MG CAPSULE PO ONE (01:10)
[2018-05-26] MEDS ORDERED: HYDROCODONE/ACETAMINOPHEN 5-325 MG (6 TAB/ER DISP) PO PRN (01:10)
[2018-05-26 01:53] VITALS: BP 96/49
== END 2018-05-26 02:21 | disposition home or self-care (01) ==
LOC: ER 20:08
DX: S01.512A Laceration without foreign body of oral cavity, initial encounter (principal); M54.2 Cervicalgia; R07.9 Chest pain, unspecified; R10.9 Unspecified abdominal pain; V49.50XA Passenger injured in collision with unspecified motor vehicles in traffic accident, initial encounter; D25.9 Leiomyoma of uterus, unspecified; I10 Essential (primary) hypertension; E11.9 Type 2 diabetes mellitus without complications; Z88.8 Allergy status to other drugs, medicaments and biological substances; Z86.73 Personal history of transient ischemic attack (TIA), and cerebral infarction without residual deficits
CPT/HCPCS: 99284; 96374; 96375; 86900; 86901; 36415; 86850; 85025; 80048; 70450; 71260; 72125; 74177; 41250; J3490 ×2; J2270; J2405

== ENCOUNTER 2018-05-28 13:32 | Emergency (ER) | payer OTHER, MEDICAID ==
[2018-05-28 16:20] LABS: APPEARANCE,URINE SLIGHTLY-CLOUDY; BILIRUBIN,URINE NEGATIVE (NEGATIVE); COLOR,URINE YELLOW; GLUCOSE, URINE NEGATIVE (NEGATIVE); KETONES,URINE NEGATIVE (NEGATIVE); LEUKOCYTE ESTERASE,URINE TRACE (NEGATIVE); NITRITE,URINE NEGATIVE (NEGATIVE); PROTEIN,URINE NEGATIVE (NEGATIVE); URINE SPECIFIC GRAVITY 1.024; UROBILINOGEN,URINE NEGATIVE mg/dL (<2.0)
[2018-05-28 16:32] LABS: ALANINE AMINOTRANSFERASE 26 U/L (9-52); ALKALINE PHOSPHATASE 115 U/L (38-126); ANION GAP 15 (5-19); ASPARTATE AMINO TRANSFERASE 16 U/L (14-36); BILIRUBIN,DIRECT 0.3 mg/dL (0.0-0.4); BILIRUBIN,TOTAL 0.6 mg/dL (0.2-1.3); BLOOD UREA NITROGEN 66 mg/dL (7-20); CALCIUM 9.3 mg/dL (8.4-10.2); CARBON DIOXIDE 25 mmol/L (22-30); CHLORIDE 101 mmol/L (98-107); GLUCOSE 160 mg/dL (75-110); POTASSIUM 4.3 mmol/L (3.6-5.0)
[2018-05-28] MEDS ORDERED: MORPHINE SULFATE 10 MG/ML INJ IV ONE (17:09)
[2018-05-28] MEDS ORDERED: ONDANSETRON HCL INJ/PF 4 MG/2 ML SDV IV ONE (17:09)
--- NOTE | 2018-05-28 17:30 | RADIOLOGY REPORT (SQ) ---
EXAM DESCRIPTION: CHEST SINGLE VIEW COMPLETED DATE/TIME: 05/28/2018 5:10 pm REASON FOR STUDY: cough COMPARISON: 05/17/2018 TECHNIQUE: Single frontal radiographic view of the chest acquired. NUMBER OF VIEWS: One view. LIMITATIONS: None. FINDINGS: LUNGS AND PLEURA: No pneumothorax. No consolidation. Mild scarring- pleural effusion at t he left costophrenic angle. MEDIASTINUM AND HILAR STRUCTURES: Stable. HEART AND VASCULAR STRUCTURES: Stable. BONES: No acute findings. HARDWARE: CABG. OTHER: No other significant finding. IMPRESSION: No consolidation. Mild scarring- pleural effusion at the left costophrenic angle. TECHNICAL DOCUMENTATION: JOB ID: [id number] [place]-[id number] 2010 [employer]- All Rights Reserved Reading location - IP/workstation name: [email or web address]
[2018-05-28 17:35] LABS: ABSOLUTE BASOPHILS # (AUTO) 0.2 10^3/uL (0.0-0.2); ABSOLUTE EOSINOPHILS # (AUTO) 0.5 10^3/uL (0.0-0.6); ABSOLUTE LYMPHOCYTES (AUTO) 1.6 10^3/uL (0.5-4.7); ABSOLUTE MONOCYTES (AUTO) 0.9 10^3/uL (0.1-1.4); ABSOLUTE NEUT (AUTO) 6.6 10^3/uL (1.7-8.2); BASOPHILS % (AUTO) 2.2 % (0-2); EOSINOPHILS % (AUTO) 5.4 % (0-6); HEMATOCRIT 23.3 % (36.0-47.0); LYMPHOCYTES % (AUTO) 16.4 % (13-45); MEAN CORPUSCULAR HEMOGLOBIN 30.1 pg (27.0-33.4); MEAN CORPUSCULAR HGB CONC 34.3 g/dL (32.0-36.0); MEAN CORPUSCULAR VOLUME 88 fl (80-97); MONOCYTES % (AUTO) 8.7 % (3-13); PLATELET COUNT 285 10^3/uL (150-450); RED BLOOD COUNT 2.65 10^6/uL (3.72-5.28); SEGMENTED NEUTROPHILS % (AUTO) 67.3 % (42-78); TOTAL CELLS COUNTED % (AUTO) 100 %; WHITE BLOOD COUNT 9.9 10^3/uL (4.0-10.5)
[2018-05-28] MEDS ORDERED: NORMAL SALINE 500 ML IV ONE (19:06)
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
[2018-05-28 23:23] VITALS: BP 101/56
== END 2018-05-29 00:15 | disposition short-term general hospital (02) ==
LOC: ER 13:32
DX: S30.1XXA Contusion of abdominal wall, initial encounter (principal); R10.30 Lower abdominal pain, unspecified; R10.813 Right lower quadrant abdominal tenderness; R10.814 Left lower quadrant abdominal tenderness; V49.50XA Passenger injured in collision with unspecified motor vehicles in traffic accident, initial encounter; Y93.89 Activity, other specified; D64.9 Anemia, unspecified; N17.9 Acute kidney failure, unspecified; I11.0 Hypertensive heart disease with heart failure; I50.9 Heart failure, unspecified; R06.02 Shortness of breath; R11.0 Nausea; R53.1 Weakness; M79.10 Myalgia, unspecified site; E11.9 Type 2 diabetes mellitus without complications; Z86.73 Personal history of transient ischemic attack (TIA), and cerebral infarction without residual deficits; Z98.890 Other specified postprocedural states; Z88.8 Allergy status to other drugs, medicaments and biological substances; Z87.891 Personal history of nicotine dependence; Z95.1 Presence of aortocoronary bypass graft
CPT/HCPCS: 99285; 96374; 96375; 36415; 85025; 85730; 80053; 81001; 83880; 71045; 74177; J2270; J2405; J7040

== ENCOUNTER 2018-06-08 11:10 | Emergency (ER) | payer OTHER, MEDICAID ==
[2018-06-08] MEDS ORDERED: COCAINE HCL 4% TOPICAL SOLN 4 ML TP ONE (11:38)
--- NOTE | 2018-06-08 11:42 | ER Document Report ---
ED Oral Problem - General Chief Complaint: Mouth Injury Stated Complaint: TONGUE BLEEDING Time Seen by Provider: 06/08/18 11:38 Mode of Arrival: Ambulatory Information source: Patient Notes: Chief complaint: Gum bleeding History of complain:( obtained from----patient) 58 years old female with carious tooth laceration to the tongue sustaining 3 weeks ago, presents today with bleeding from that site. It is over the right anterior molar region. She is also on Xarelto. Amount of bleeding is small. Has no symptoms. Such as dizziness or headache. Onset: As above sudden Duration: Sudden since this morning Severity: mild. Quality: Not applicable Context: As described above Exacerbating factor and relieving factors: REVIEW OF SYSTEMS: CONSTITUTIONAL : Denies fever, chills, or sweats. Denies recent illness. EENT: Denies eye, ear, throat, or mouth pain or symptoms. Denies nasal or sinus congestion or discharge. Denies throat, tongue, or mouth swelling or difficulty swallowing. CARDIOVASCULAR: Denies chest pain. Denies palpitations or racing or irregular heart beat. Denies ankle edema. RESPIRATORY: Denies cough, cold, or chest congestion. Denies shortness of breath, difficulty breathing, or wheezing. GASTROINTESTINAL: Denies distention. Denies nausea, vomiting, or diarrhea. Denies blood in vomitus, stools, or per rectum. Denies black, tarry stools. Denies constipation. GENITOURINARY: Denies difficulty urinating, painful urination, burning, frequency, blood in urine, or discharge. FEMALE GENITOURINARY: Denies vaginal bleeding, heavy or abnormal periods, irregular periods. Denies vaginal discharge or odor. MUSCULOSKELETAL: Denies back or neck pain or stiffness. Denies joint pain or swelling. SKIN: Denies rash, lesions or sores. HEMATOLOGIC : Denies easy bruising or bleeding. LYMPHATIC: Denies swollen, enlarged glands. NEUROLOGICAL: Denies confusion or altered mental status. Denies passing out or loss of consciousness. Denies dizziness or lightheadedness. Denies headache. Denies weakness or paralysis or loss of use of either side. Denies problems with gait or speech. Denies sensory loss, numbness, or tingling. Denies seizures. PSYCHIATRIC: Denies anxiety or stress. Denies depression, suicidal ideation, or homicidal ideation. ALL OTHER SYSTEMS REVIEWED AND NEGATIVE. PHYSICAL EXAMINATION: GENERAL: Well-appearing, well-nourished and in no acute distress. HEAD: Atraumatic, normocephalic. EYES: Pupils equal round and reactive to light, extraocular movements intact, conjunctiva are normal. ENT: Nares patent, oropharynx clear without exudates. Moist mucous membranes. Right anterior to molar tooth missing and the cavity has dried blood clot noted. Posterior part of the tongue on the right side has an old laceration healing well. NECK: Normal range of motion, supple without lymphadenopathy LUNGS: Breath sounds clear to auscultation bilaterally and equal. No wheezes rales or rhonchi. HEART: Regular rate and rhythm without murmurs ABDOMEN: Soft, nontender, nondistended abdomen. No guarding, no rebound. No masses appreciated. Examination of genitals-deferred Musculoskeletal: Normal range of motion, no pitting or edema. No cyanosis. NEUROLOGICAL: Cranial nerves grossly intact. Normal speech, normal gait. Normal sensory, motor exams PSYCH: Normal mood, normal affect. SKIN: Warm, Dry, normal turgor, no rashes or lesions noted. Dictation was performed using [employer] voice recognition software TRAVEL OUTSIDE OF THE [place] IN LAST 30 DAYS: No - HPI Notes: Dictated - Related Data Allergies/Adverse Reactions: niacin [Niacin] Allergy (Verified 06/08/18 11:12) simvastatin [Simvastatin] Allergy (Verified 06/08/18 11:12) benedryl Adverse Reaction (Uncoded 06/08/18 11:12) Past Medical History - Social History Smoking Status: Former Smoker Chew tobacco use (# tins/day): No Frequency of alcohol use: None Drug Abuse: None Lives with: Family Family History: Reviewed & Not Pertinent, CAD, Hypertension Patient has suicidal ideation: No Patient has homicidal ideation: No - Medical History Notes: Dictated - Past Medical History Cardiac Medical History: Reports: Hx Hypercholesterolemia, Hx Hypertension Denies: Hx Coronary Artery Disease, Hx Heart Attack Pulmonary Medical History: Reports: Hx Bronchitis Denies: Hx Asthma, Hx COPD, Hx Pneumonia Neurological Medical History: Reports: Hx Cerebrovascular Accident - Hx of TIAs , Hx Seizures - 3 YEARS AGO AFTER BENADRYL USE Endocrine Medical History: Reports: Hx Diabetes Mellitus Type 2 - no medications , Hx Hypothyroidism Renal/ Medical History: Denies: Hx Peritoneal Dialysis Musculoskeletal Medical History: Reports Hx Arthritis Psychiatric Medical History: Reports: Hx Depression Past Surgical History: Reports: Hx Cardiac Catheterization, Hx Cardiac Surgery - 4 bipass, Hx Coronary Artery Bypass Graft, Hx Tubal Ligation, Hx Vascular Surgery - Lower extremity stent placement 3 - Immunizations Hx Diphtheria, Pertussis, Tetanus Vaccination: No - UNSURE Hx Pneumococcal Vaccination: 12/10/12 Review of Systems - Review of Systems Notes: Dictated Physical Exam - Vital signs Vitals: Temp Pulse Resp BP Pulse Ox 98.2 F 64 16 139/52 H 100 06/08/18 11:13 06/08/18 11:13 06/08/18 11:13 06/08/18 11:13 06/08/18 11:13 - Notes Notes: Dictated Course - Re-evaluation Re-evalutation: 06/08/18 11:57 Topical cocaine was soaked in cotton back and placed on the bleeding site the gum. The bleeding stopped - Vital Signs Vital signs: Temp Pulse Resp BP Pulse Ox 98.2 F 64 16 139/52 H 100 06/08/18 11:13 06/08/18 11:13 06/08/18 11:13 06/08/18 11:13 06/08/18 11:13 Discharge - Discharge Clinical Impression: Bleeding gums Condition: Fair Disposition: HOME, SELF-CARE Instructions: Toothache ([facility])
[2018-06-08 12:57] VITALS: BP 118/90
== END 2018-06-08 12:46 | disposition home or self-care (01) ==
LOC: ER 11:10
DX: K06.8 Other specified disorders of gingiva and edentulous alveolar ridge (principal); Z79.01 Long term (current) use of anticoagulants; K02.9 Dental caries, unspecified; I10 Essential (primary) hypertension; E11.9 Type 2 diabetes mellitus without complications; Z88.8 Allergy status to other drugs, medicaments and biological substances; Z87.891 Personal history of nicotine dependence
CPT/HCPCS: 99282; J3490

== ENCOUNTER → 2018-06-27 | Outpatient (CLI) | payer MEDICAID ==
--- NOTE | 2018-06-27 14:13 | RADIOLOGY REPORT (SQ) ---
EXAM DESCRIPTION: CAROTID DOPPLER COMPLETED DATE/TIME: 06/27/2018 2:01 pm REASON FOR STUDY: OCCLUSION/STENOSIS I65.29 OCCLUSION AND STENOSIS OF UNSPECIFIED CAROTID ARTERY COMPARISON: CT brain 05/25/2018 Carotid Doppler 09/04/2016 TECHNIQUE: Grayscale ultrasound, Doppler velocity and spectra, and color Doppler images acquired of the extra-cranial carotid and vertebral arteries. Images stored on PACS. LIMITATIONS: None. FINDINGS: RIGHT CAROTID CCA Velocities: Intimal thickening. Normal right common carotid artery peak systolic velocity 0.85 m /sec ICA Velocities Peak systolic 1.4 m/s. End diastolic 0.4 m/s. Proximal ICA/CCA peak systolic ratio 1.9. There is calcific plaque at the right carotid bifurcation shadowing the origin of the right ICA. Imm ediately distal to the shadowing plaque, peak systolic velocities suggest 50 to 69% diameter narrowin g. LEFT CAROTID CCA Velocities: Intimal thickening. Normal left common carotid peak systolic velocity 0.8 m/sec ICA Velocities Peak systolic 0.93 m/s. End diastolic 0.32 m/s. Proximal ICA/CCA peak systolic ratio 1.2. There is calcific plaque at the left carotid bifurcation without flow significant stenosis by velocit y criteria immediately distal to the shadowing plaque. VERTEBRAL ARTERIES: Antegrade flow. Normal waveforms. SUBCLAVIAN ARTERIES: Not evaluated OTHER: No other significant finding. IMPRESSION: 50 to 69% diameter stenosis proximal right ICA due to calcific plaque. No flow significant stenosis left carotid bifurcation Antegrade pulsatile vertebral artery flow bilaterally COMMENT: Quality ID #[id number]: Velocity criteria are extrapolated from the diameter data as defined by t he Society of Radiologists in Ultrasound Consensus Conference. Radiology 2003: 229; 340-346. TECHNICAL DOCUMENTATION: JOB ID: [id number] [employer]- All Rights Reserved Reading location - IP/workstation name: [email or web address]
== END ==
LOC: SP 10:17
PROVIDERS: ATTEND Internal Medicine Cardiovascular Disease
DX: I65.21 Occlusion and stenosis of right carotid artery (principal)
CPT/HCPCS: 93880

== ENCOUNTER → 2018-07-01 | Outpatient (CLI) | payer MEDICAID ==
[2018-07-01 11:15] LABS: ABSOLUTE BASOPHILS # (AUTO) 0.2 10^3/uL (0.0-0.2); ABSOLUTE EOSINOPHILS # (AUTO) 0.3 10^3/uL (0.0-0.6); ABSOLUTE LYMPHOCYTES (AUTO) 1.6 10^3/uL (0.5-4.7); ABSOLUTE MONOCYTES (AUTO) 0.5 10^3/uL (0.1-1.4); ABSOLUTE NEUT (AUTO) 4.9 10^3/uL (1.7-8.2); ABSOLUTE RETICS # 0.039 10^6/uL (0.028-0.122); BASOPHILS % (AUTO) 2.3 % (0-2); EOSINOPHILS % (AUTO) 4.5 % (0-6); HEMATOCRIT 36.6 % (36.0-47.0); HEMOGLOBIN 12.2 g/dL (12.0-15.5); LYMPHOCYTES % (AUTO) 21.2 % (13-45); MEAN CORPUSCULAR HEMOGLOBIN 28.7 pg (27.0-33.4); MEAN CORPUSCULAR HGB CONC 33.4 g/dL (32.0-36.0); MEAN CORPUSCULAR VOLUME 86 fl (80-97); PLATELET COUNT 246 10^3/uL (150-450); RED BLOOD COUNT 4.26 10^6/uL (3.72-5.28); RED CELL DISTRIBUTION WIDTH 15.6 % (11.5-14.0); RETICULOCYTE COUNT (AUTO) 0.91 % (0.66-2.85); TOTAL CELLS COUNTED % (AUTO) 100 %; WHITE BLOOD COUNT 7.5 10^3/uL (4.0-10.5)
[2018-07-01 11:30] LABS: ALANINE AMINOTRANSFERASE 32 U/L (9-52); ALBUMIN 3.8 g/dL (3.5-5.0); ALKALINE PHOSPHATASE 137 U/L (38-126); ANION GAP 14 (5-19); ASPARTATE AMINO TRANSFERASE 25 U/L (14-36); BILIRUBIN,DIRECT 0.2 mg/dL (0.0-0.4); BILIRUBIN,TOTAL 0.3 mg/dL (0.2-1.3); BLOOD UREA NITROGEN 30 mg/dL (7-20); CALCIUM 9.2 mg/dL (8.4-10.2); CARBON DIOXIDE 28 mmol/L (22-30); CHLORIDE 99 mmol/L (98-107); GLUCOSE 387 mg/dL (75-110); IRON(TIBC) 50.3 ug/dL (37-170); POTASSIUM 4.4 mmol/L (3.6-5.0); TOTAL PROTEIN 6.5 g/dL (6.3-8.2)
[2018-07-01 11:56] LABS: ERYTHROCYTE SEDIMENTATION RATE 40 mm/hr (0-30)
[2018-07-01 12:47] LABS: BLOOD UREA NITROGEN 30 mg/dL (7-20); CALCIUM 9.2 mg/dL (8.4-10.2); GLUCOSE 387 mg/dL (75-110)
[2018-07-01 12:48] LABS: ANION GAP 14 (5-19); CARBON DIOXIDE 28 mmol/L (22-30); CHLORIDE 99 mmol/L (98-107); POTASSIUM 4.4 mmol/L (3.6-5.0)
== END ==
LOC: OD 10:38
PROVIDERS: ATTEND Internal Medicine Hematology & Oncology
DX: N18.3 Chronic kidney disease, stage 3 (moderate) (principal); R80.9 Proteinuria, unspecified; E11.9 Type 2 diabetes mellitus without complications; E87.5 Hyperkalemia
CPT/HCPCS: 36415; 80048; 80053; 82607; 82728; 82746; 83540; 83550; 83615; 85025; 85045; 85652

== ENCOUNTER → 2018-10-20 | Outpatient (CLI) | payer MEDICAID ==
[2018-10-20 11:27] LABS: APPEARANCE,URINE SLIGHTLY-CLOUDY; BILIRUBIN,URINE NEGATIVE (NEGATIVE); COLOR,URINE YELLOW; GLUCOSE, URINE >=500 mg/dL (NEGATIVE); KETONES,URINE NEGATIVE (NEGATIVE); LEUKOCYTE ESTERASE,URINE NEGATIVE (NEGATIVE); NITRITE,URINE NEGATIVE (NEGATIVE); PROTEIN,URINE NEGATIVE (NEGATIVE); URINE SPECIFIC GRAVITY 1.015; UROBILINOGEN,URINE NEGATIVE mg/dL (<2.0)
[2018-10-20 11:28] LABS: HEMATOCRIT 36.1 % (36.0-47.0); HEMOGLOBIN 12.1 g/dL (12.0-15.5); MEAN CORPUSCULAR HEMOGLOBIN 29.3 pg (27.0-33.4); MEAN CORPUSCULAR HGB CONC 33.5 g/dL (32.0-36.0); MEAN CORPUSCULAR VOLUME 87 fl (80-97); PLATELET COUNT 264 10^3/uL (150-450); RED BLOOD COUNT 4.14 10^6/uL (3.72-5.28); RED CELL DISTRIBUTION WIDTH 16.1 % (11.5-14.0); WHITE BLOOD COUNT 8.8 10^3/uL (4.0-10.5)
[2018-10-20 11:51] LABS: ANION GAP 12 (5-19); BLOOD UREA NITROGEN 37 mg/dL (7-20); CALCIUM 9.4 mg/dL (8.4-10.2); CARBON DIOXIDE 28 mmol/L (22-30); CHLORIDE 99 mmol/L (98-107); GLUCOSE 312 mg/dL (75-110); POTASSIUM 4.5 mmol/L (3.6-5.0); SODIUM 138.6 mmol/L (137-145)
== END ==
LOC: OD 10:30
PROVIDERS: ATTEND Physician Assistant Medical
DX: I12.9 Hypertensive chronic kidney disease with stage 1 through stage 4 chronic kidney disease, or unspecified chronic kidney disease (principal); N18.3 Chronic kidney disease, stage 3 (moderate); E87.5 Hyperkalemia
CPT/HCPCS: 36415; 80048; 81001; 85027

== ENCOUNTER → 2019-06-21 | Outpatient (CLI) | payer MEDICAID ==
[2019-06-21 11:03] LABS: APPEARANCE,URINE CLEAR; BILIRUBIN,URINE NEGATIVE (NEGATIVE); COLOR,URINE YELLOW; GLUCOSE, URINE >=500 mg/dL (NEGATIVE); KETONES,URINE NEGATIVE (NEGATIVE); LEUKOCYTE ESTERASE,URINE NEGATIVE (NEGATIVE); NITRITE,URINE NEGATIVE (NEGATIVE); PROTEIN,URINE NEGATIVE (NEGATIVE); URINE SPECIFIC GRAVITY 1.021; UROBILINOGEN,URINE NEGATIVE mg/dL (<2.0)
[2019-06-21 11:03] LABS: ABSOLUTE BASOPHILS # (AUTO) 0.2 10^3/uL (0.0-0.2); ABSOLUTE EOSINOPHILS # (AUTO) 0.4 10^3/uL (0.0-0.6); ABSOLUTE LYMPHOCYTES (AUTO) 1.9 10^3/uL (0.5-4.7); ABSOLUTE MONOCYTES (AUTO) 0.7 10^3/uL (0.1-1.4); ABSOLUTE NEUT (AUTO) 5.5 10^3/uL (1.7-8.2); EOSINOPHILS % (AUTO) 4.6 % (0-6); HEMATOCRIT 37.9 % (36.0-47.0); HEMOGLOBIN 12.6 g/dL (12.0-15.5); LYMPHOCYTES % (AUTO) 22.1 % (13-45); MEAN CORPUSCULAR HEMOGLOBIN 29.3 pg (27.0-33.4); MEAN CORPUSCULAR HGB CONC 33.3 g/dL (32.0-36.0); MEAN CORPUSCULAR VOLUME 88 fl (80-97); MONOCYTES % (AUTO) 8.2 % (3-13); PLATELET COUNT 236 10^3/uL (150-450); RED BLOOD COUNT 4.32 10^6/uL (3.72-5.28); RED CELL DISTRIBUTION WIDTH 13.9 % (11.5-14.0); SEGMENTED NEUTROPHILS % (AUTO) 63.1 % (42-78); TOTAL CELLS COUNTED % (AUTO) 100 %; WHITE BLOOD COUNT 8.7 10^3/uL (4.0-10.5)
[2019-06-21 12:06] LABS: ANION GAP 11 (5-19); BLOOD UREA NITROGEN 31 mg/dL (7-20); CALCIUM 9.6 mg/dL (8.4-10.2); CARBON DIOXIDE 29 mmol/L (22-30); CHLORIDE 95 mmol/L (98-107); PHOSPHORUS 5.7 mg/dL (2.5-4.5)
[2019-06-21 12:19] LABS: GLUCOSE 491 mg/dL (75-110)
== END ==
LOC: OD 10:18
PROVIDERS: ATTEND Physician Assistant Medical
DX: N18.3 Chronic kidney disease, stage 3 (moderate) (principal); I12.9 Hypertensive chronic kidney disease with stage 1 through stage 4 chronic kidney disease, or unspecified chronic kidney disease; E11.9 Type 2 diabetes mellitus without complications; R80.9 Proteinuria, unspecified; E87.5 Hyperkalemia
CPT/HCPCS: 36415; 80048; 81001; 83970; 84100; 85025; 87086

== ENCOUNTER → 2019-09-29 | Outpatient (CLI) | payer MEDICAID ==
[2019-09-29 10:02] LABS: ABSOLUTE BASOPHILS # (AUTO) 0.2 10^3/uL (0.0-0.2); ABSOLUTE EOSINOPHILS # (AUTO) 0.5 10^3/uL (0.0-0.6); ABSOLUTE LYMPHOCYTES (AUTO) 1.8 10^3/uL (0.5-4.7); ABSOLUTE MONOCYTES (AUTO) 0.7 10^3/uL (0.1-1.4); ABSOLUTE NEUT (AUTO) 5.5 10^3/uL (1.7-8.2); BASOPHILS % (AUTO) 1.9 % (0-2); EOSINOPHILS % (AUTO) 6.1 % (0-6); HEMATOCRIT 36.6 % (36.0-47.0); HEMOGLOBIN 12.5 g/dL (12.0-15.5); LYMPHOCYTES % (AUTO) 20.5 % (13-45); MEAN CORPUSCULAR HEMOGLOBIN 28.9 pg (27.0-33.4); MEAN CORPUSCULAR HGB CONC 34.2 g/dL (32.0-36.0); MEAN CORPUSCULAR VOLUME 85 fl (80-97); MONOCYTES % (AUTO) 8.4 % (3-13); PLATELET COUNT 258 10^3/uL (150-450); RED BLOOD COUNT 4.34 10^6/uL (3.72-5.28); RED CELL DISTRIBUTION WIDTH 14.9 % (11.5-14.0); SEGMENTED NEUTROPHILS % (AUTO) 63.1 % (42-78); TOTAL CELLS COUNTED % (AUTO) 100 %; WHITE BLOOD COUNT 8.6 10^3/uL (4.0-10.5)
[2019-09-29 10:20] LABS: APPEARANCE,URINE SLIGHTLY-CLOUDY; BILIRUBIN,URINE NEGATIVE (NEGATIVE); COLOR,URINE YELLOW; GLUCOSE, URINE 50 mg/dL (NEGATIVE); KETONES,URINE NEGATIVE (NEGATIVE); LEUKOCYTE ESTERASE,URINE TRACE (NEGATIVE); NITRITE,URINE NEGATIVE (NEGATIVE); PROTEIN,URINE 30 mg/dL (NEGATIVE); URINE SPECIFIC GRAVITY 1.014; UROBILINOGEN,URINE NEGATIVE mg/dL (<2.0)
[2019-09-29 10:31] LABS: ANION GAP 11 (5-19); BLOOD UREA NITROGEN 28 mg/dL (7-20); CALCIUM 9.4 mg/dL (8.4-10.2); CARBON DIOXIDE 29 mmol/L (22-30); CHLORIDE 104 mmol/L (98-107); GLUCOSE 158 mg/dL (75-110); POTASSIUM 4.8 mmol/L (3.6-5.0)
[2019-09-29 10:32] LABS: UR PRO/CREAT RATIO RESULT 0.2 mg/mg (0.0-0.2); URINE CREATININE 119.1 mg/dL (15-278); URINE PROTEIN 29.3 mg/dL (<12)
== END ==
LOC: OD 09:35
PROVIDERS: ATTEND Physician Assistant Medical
DX: I12.9 Hypertensive chronic kidney disease with stage 1 through stage 4 chronic kidney disease, or unspecified chronic kidney disease (principal); N18.3 Chronic kidney disease, stage 3 (moderate); E11.22 Type 2 diabetes mellitus with diabetic chronic kidney disease; R80.9 Proteinuria, unspecified; E87.5 Hyperkalemia
CPT/HCPCS: 36415; 80069; 81001; 82570; 83970; 84156; 85025

== ENCOUNTER → 2019-12-25 | Outpatient (CLI) | payer MEDICAID ==
[2019-12-25 09:23] LABS: ABSOLUTE BASOPHILS # (AUTO) 0.2 10^3/uL (0.0-0.2); ABSOLUTE EOSINOPHILS # (AUTO) 0.5 10^3/uL (0.0-0.6); ABSOLUTE LYMPHOCYTES (AUTO) 1.8 10^3/uL (0.5-4.7); ABSOLUTE MONOCYTES (AUTO) 0.6 10^3/uL (0.1-1.4); ABSOLUTE NEUT (AUTO) 4.7 10^3/uL (1.7-8.2); EOSINOPHILS % (AUTO) 6.7 % (0-6); HEMATOCRIT 33.3 % (36.0-47.0); LYMPHOCYTES % (AUTO) 23.4 % (13-45); MEAN CORPUSCULAR HEMOGLOBIN 27.1 pg (27.0-33.4); MEAN CORPUSCULAR HGB CONC 33.1 g/dL (32.0-36.0); MEAN CORPUSCULAR VOLUME 82 fl (80-97); MONOCYTES % (AUTO) 7.5 % (3-13); PLATELET COUNT 274 10^3/uL (150-450); RED BLOOD COUNT 4.06 10^6/uL (3.72-5.28); RED CELL DISTRIBUTION WIDTH 16.7 % (11.5-14.0); SEGMENTED NEUTROPHILS % (AUTO) 60.4 % (42-78); TOTAL CELLS COUNTED % (AUTO) 100 %; WHITE BLOOD COUNT 7.9 10^3/uL (4.0-10.5)
[2019-12-25 09:57] LABS: ALBUMIN 3.8 g/dL (3.5-5.0); ANION GAP 9 (5-19); BLOOD UREA NITROGEN 32 mg/dL (7-20); CALCIUM 8.7 mg/dL (8.4-10.2); CARBON DIOXIDE 24 mmol/L (22-30); CHLORIDE 105 mmol/L (98-107); GLUCOSE 185 mg/dL (75-110); PHOSPHORUS 3.7 mg/dL (2.5-4.5); POTASSIUM 4.9 mmol/L (3.6-5.0)
[2019-12-25 10:02] LABS: APPEARANCE,URINE SLIGHTLY-CLOUDY; BILIRUBIN,URINE NEGATIVE (NEGATIVE); COLOR,URINE YELLOW; GLUCOSE, URINE 50 mg/dL (NEGATIVE); KETONES,URINE NEGATIVE (NEGATIVE); LEUKOCYTE ESTERASE,URINE NEGATIVE (NEGATIVE); NITRITE,URINE NEGATIVE (NEGATIVE); PROTEIN,URINE 30 mg/dL (NEGATIVE); URINE SPECIFIC GRAVITY 1.015; UROBILINOGEN,URINE NEGATIVE mg/dL (<2.0)
[2019-12-25 10:33] LABS: UR PRO/CREAT RATIO RESULT 0.3 mg/mg (0.0-0.2); URINE CREATININE 98.3 mg/dL (15-278); URINE PROTEIN 29.9 mg/dL (<12)
== END ==
LOC: OD 08:38
PROVIDERS: ATTEND Physician Assistant Medical
DX: I12.9 Hypertensive chronic kidney disease with stage 1 through stage 4 chronic kidney disease, or unspecified chronic kidney disease (principal); N18.3 Chronic kidney disease, stage 3 (moderate); E87.5 Hyperkalemia; E11.22 Type 2 diabetes mellitus with diabetic chronic kidney disease; R80.9 Proteinuria, unspecified
CPT/HCPCS: 36415; 80069; 81001; 82570; 83970; 84156; 85025

== ENCOUNTER 2020-02-12 11:11 | Emergency (ER) | payer MEDICAID ==
[2020-02-12 11:17] VITALS: BP 142/63
== END 2020-02-12 12:33 | disposition left against medical advice (07) ==
LOC: ER 11:11
DX: Z53.21 Procedure and treatment not carried out due to patient leaving prior to being seen by health care provider (principal); T14.90XA Injury, unspecified, initial encounter